=== PATIENT | female | born 1965 | race Caucasian/White ===

== ENCOUNTER 2016-11-25 15:30 | Emergency (ER) | payer MEDICARE, OTHER ==
[2016-11-25 15:42] VITALS: BP 156/76; PULSE 76; RESP 16; TEMP 96.9
--- NOTE | 2016-11-25 15:48 | ED ---
Upper Extremity HPI - General Chief Complaint: Extremity Injury, Upper Stated Complaint: L wrist injury Time Seen by Provider: 11/25/16 15:39 Source: patient Mode of arrival: ambulatory Limitations: no limitations - History of Present Illness Initial Comments: 51-year-old female patient presented to emergency department today with complaints of left wrist pain. Patient states that she was going outside today when she struck her wrist on the door handle accidentally. Patient states that she had some pain to the area however it has worsened throughout the day. Patient states she did attempt to take a shower wash her however she couldn't even grasp her washcloth due to the pain. Patient denies any previous wrist injury. Denies any numbness or tingling to her hand. She states she is able to move it however the pain worsens. Reports pain is worse over the ulnar aspect. Denies any other injuries. Patient denies any headache, neck pain, back pain, chest pain, shortness of breath, dizziness, weakness, abdominal pain , nausea, vomiting, or difficulties with bowel movements or urination. - Related Data Home Medications Medication Instructions Recorded Confirmed HYDROcodone/APAP 10-325MG [[place] 1 tab PO TID PRN 05/30/14 11/25/16 10-325] Esomeprazole Magnesium [NexIUM] 40 mg PO DAILY 09/08/14 11/25/16 Cyclobenzaprine [Flexeril] 10 mg PO HS 11/25/16 11/25/16 Naproxen 500 mg PO BID PRN 11/25/16 11/25/16 Allergies Allergy/AdvReac Type Severity Reaction Status Date / Time No Known Allergies Allergy Verified 11/25/16 15:41 Review of Systems ROS Statement: Those systems with pertinent positive or pertinent negative responses have been documented in the HPI. ROS Other: All systems not noted in ROS Statement are negative. Past Medical History Past Medical History: COPD, GERD/Reflux, Musculoskeletal Disorder, Osteoarthritis (OA) Additional Past Medical History / Comment(s): migraines, recurring ulcers, frequent abd. pain, DDD in neck, OSTEOPOROSIS, HAVING TROUBLE SWALLOWING, ON SOFT DIET, 5 LB WT LOSS IN 2 MONTHS History of Any Multi-Drug Resistant Organisms: None Reported Past Surgical History: Bladder Surgery, Cholecystectomy, Hernia Repair, Hysterectomy Additional Past Surgical History / Comment(s): JOSE ENRIQUE FUNDLAPLASTY, exploratory abd. surg. D&C Past Anesthesia/Blood Transfusion Reactions: No Reported Reaction Additional Past Anesthesia/Blood Transfusion Reaction / Comment(s): RECENT SURGERY HAD TO INTUBATED HAD PROBLEMS BREATHING Past Psychological History: No Psychological Hx Reported Smoking Status: Former smoker Past Alcohol Use History: Rare Past Drug Use History: None Reported - Past Family History Father Family Medical History: No Reported History General Exam Limitations: no limitations General appearance: alert, in no apparent distress Head exam: Present: atraumatic, normocephalic, normal inspection Respiratory exam: Present: normal lung sounds bilaterally. Absent: respiratory distress, wheezes, rales, rhonchi, stridor Cardiovascular Exam: Present: regular rate, normal rhythm, normal heart sounds. Absent: systolic murmur, diastolic murmur, rubs, gallop, clicks Extremities exam: Present: full ROM, normal capillary refill, other (Swelling over the ulnar aspect of the left wrist. Skin is pink, warm, and dry. Cap refill less than 3 seconds. Radial pulse intact, strong, and equal bilaterally. No anatomical snuffbox tenderness.). Absent: normal inspection, tenderness, pedal edema, joint swelling, calf tenderness Neurological exam: Present: alert, oriented X3, CN II-XII intact Psychiatric exam: Present: normal affect, normal mood Skin exam: Present: warm, dry, intact, normal color. Absent: rash Course Vital Signs 11/25/16 15:39 Temperature 96.9 F L Pulse Rate 76 Respiratory 16 Rate Blood Pressure 156/76 O2 Sat by Pulse 98 Oximetry Medical Decision Making - Medical Decision Making 51-year-old female patient presented to emergency department today for evaluation of left wrist pain. X-ray showed no acute fracture nor dislocation. Patient discharged home with instructions to wear brace (patient was wearing a brace upon arrival). Patient instructed to take her home pain medications for pain relief. Instructed to ice and elevate the extremity. Instructed her to follow up with her primary care physician or orthopedics in 7-10 days for repeat x-ray if symptoms persist. Patient instructed to return here immediately for any new, worsening, or concerning symptoms. Patient verbalizes understanding and agrees with this plan. - Radiology Data Radiology results: report reviewed, image reviewed 4 views of the left wrist were obtained and did show that the osseous structures are intact. Joint spaces are preserved and there is no acute fracture or dislocation. Impression by Dr. Velarde says no definite acute fracture or dislocation if symptoms persist follow-up study in 7-10 days be suggested. Disposition Clinical Impression: Left wrist sprain Disposition: HOME SELF-CARE Condition: Good Instructions: Wrist Injury (ED), Wrist Sprain (ED) Additional Instructions: Use Sunil wrap or brace for comfort. Apply ice 20 minutes at a time at least 4 times per day.Take ibuprofen or Tylenol for pain control. Follow-up for recheck in 7-10 days if symptoms persist. Return immediately for any new, worsening, or concerning symptoms. Referrals: Joshua Mendoza MD [Primary Care Provider] - 1-2 days Time of Disposition: 16:13
--- NOTE | 2016-11-25 16:06 | XR ---
EXAMINATION TYPE: XR wrist complete LT DATE OF EXAM: 11/25/2016 COMPARISON: NONE HISTORY: Generalized pain TECHNIQUE: Four views submitted. FINDINGS: The osseous structures are intact. The joint spaces are preserved and there is no acute fracture or dislocation. IMPRESSION: 1. No definite acute fracture or dislocation if symptoms persist, follow-up study in 7 to 10 days wo uld be suggested
== END 2016-11-25 16:19 | disposition home or self-care (01) ==
LOC: EC 15:30
DX: S63.502A Unspecified sprain of left wrist, initial encounter (principal); W22.8XXA Striking against or struck by other objects, initial encounter; Z79.899 Other long term (current) drug therapy; K21.9 Gastro-esophageal reflux disease without esophagitis
CPT/HCPCS: 99283

== ENCOUNTER 2017-01-08 16:30 | Emergency (ER) | payer MEDICARE, OTHER ==
[2017-01-08 16:58] VITALS: BP 135/82; PULSE 76; RESP 18; TEMP 97.3
[2017-01-08] MEDS ORDERED: predniSONE 50 MG TAB PO STA (17:09)
--- NOTE | 2017-01-08 17:10 | ED ---
Skin/Abscess/FB HPI - General Chief complaint: Skin/Abscess/Foreign Body Stated complaint: Bee Sting Time Seen by Provider: 01/08/17 17:05 Source: patient Mode of arrival: ambulatory Limitations: no limitations - History of Present Illness Initial comments: 51-year-old female patient percents to emergency department today for evaluation of a bee sting to her right hand. Patient states she was driving 2 days ago when a be was in her car and her on the middle finger on the right hand. She states that she has been taking Benadryl however doesn't seem to be helping her symptoms. She states that the finger and her hand are swollen, burning, and itching. She states that nothing seems to be helping her symptoms. She has no known ALLERGY to bees. Denies any shortness of breath, throat tightness, wheezing, or rash anywhere else. Patient denies any recent fever, chills, chest pain, abdominal pain, nausea, vomiting, diarrhea, constipation, back pain, numbness, tingling, dizziness, weakness, hematuria, dysuria, urinary urgency, urinary frequency, headache, visual changes, or any other complaints. - Related Data Home Medications Medication Instructions Recorded Confirmed HYDROcodone/APAP 10-325MG [[place] 1 tab PO TID PRN 05/30/14 11/25/16 10-325] Esomeprazole Magnesium [NexIUM] 40 mg PO DAILY 09/08/14 11/25/16 Cyclobenzaprine [Flexeril] 10 mg PO HS 11/25/16 11/25/16 Naproxen 500 mg PO BID PRN 11/25/16 11/25/16 Previous Rx's Medication Instructions Recorded predniSONE 50 mg PO DAILY #3 tab 01/08/17 Allergies Allergy/AdvReac Type Severity Reaction Status Date / Time No Known Allergies Allergy Verified 01/08/17 16:58 Review of Systems ROS Statement: Those systems with pertinent positive or pertinent negative responses have been documented in the HPI. ROS Other: All systems not noted in ROS Statement are negative. Past Medical History Past Medical History: COPD, GERD/Reflux, Musculoskeletal Disorder, Osteoarthritis (OA), Thyroid Disorder Additional Past Medical History / Comment(s): migraines, recurring ulcers, frequent abd. pain, DDD in neck, OSTEOPOROSIS, HAVING TROUBLE SWALLOWING, ON SOFT DIET, History of Any Multi-Drug Resistant Organisms: None Reported Past Surgical History: Bladder Surgery, Cholecystectomy, Hernia Repair, Hysterectomy Additional Past Surgical History / Comment(s): JOSE ENRIQUE FUNDLAPLASTY, exploratory abd. surg. D&C Past Anesthesia/Blood Transfusion Reactions: No Reported Reaction Additional Past Anesthesia/Blood Transfusion Reaction / Comment(s): RECENT SURGERY HAD TO INTUBATED HAD PROBLEMS BREATHING Past Psychological History: No Psychological Hx Reported Smoking Status: Former smoker Past Alcohol Use History: Rare Past Drug Use History: None Reported - Past Family History Father Family Medical History: No Reported History General Exam Limitations: no limitations General appearance: alert, in no apparent distress, other (Physical well- developed, well-nourished female patient in no acute distress. Vital signs upon presentation are temperature 97.3F, pulse 76, respirations 18, blood pressure 135/82, pulse ox 99% on room air.) Respiratory exam: Present: normal lung sounds bilaterally. Absent: respiratory distress, wheezes, rales, rhonchi, stridor Cardiovascular Exam: Present: regular rate, normal rhythm, normal heart sounds. Absent: systolic murmur, diastolic murmur, rubs, gallop, clicks Extremities exam: Present: full ROM, normal capillary refill, other (Patient has some erythema and swelling over the right middle finger, and the dorsal aspect of the right hand. Radial pulses 2+ and equal bilaterally. Skin is warm to touch. Cap refills less than 3 seconds. Skin otherwise pink, warm, and dry.). Absent: tenderness, pedal edema, joint swelling, calf tenderness Neurological exam: Present: alert, oriented X3, CN II-XII intact Psychiatric exam: Present: normal affect, normal mood Skin exam: Present: warm, dry, intact, normal color. Absent: rash Course Vital Signs 01/08/17 16:54 Temperature 97.3 F L Pulse Rate 76 Respiratory 18 Rate Blood Pressure 135/82 O2 Sat by Pulse 99 Oximetry Medical Decision Making - Medical Decision Making 51-year-old female patient presents for increased hand swelling and burning after being stung by a bee 2 days ago. States that she has been taking Benadryl without relief. Physical exam does show some minor swelling and erythema over the dorsum of the right hand and the right middle finger. We will give her a by mouth dose of prednisone here in the department, and do a three-day course of prednisone for her at home. If she is instructed to apply cool compresses to the hand. She is instructed to continue taking Benadryl every 6 hours as needed. I instructed her to follow-up with her primary care physician for recheck in 1-2 days. Instructed her to return here immediately for any new, worsening, or concerning symptoms. She verbalizes understanding and agrees with this plan. Disposition Clinical Impression: Insect sting Disposition: HOME SELF-CARE Condition: Good Instructions: Insect Bite or Sting (ED) Additional Instructions: Cool compresses over the hand at least 10-15 minutes at a time 4 times daily. Take medication as directed. Use Benadryl every 6 hours as needed for symptom control. Follow-up through primary care physician for recheck in 1-2 days. Prescriptions: predniSONE 50 mg PO DAILY #3 tab Referrals: Joshua Mendoza MD [Primary Care Provider] - 1-2 days Time of Disposition: 17:10
== END 2017-01-08 17:18 | disposition home or self-care (01) ==
LOC: EC 16:30
DX: T63.441A Toxic effect of venom of bees, accidental (unintentional), initial encounter (principal); K21.9 Gastro-esophageal reflux disease without esophagitis; M62.9 Disorder of muscle, unspecified; Z87.891 Personal history of nicotine dependence; Z79.899 Other long term (current) drug therapy
CPT/HCPCS: 99282 ×2; J7512

== ENCOUNTER → 2017-10-26 | Outpatient (CLI) | payer MEDICARE, OTHER ==
--- NOTE | 2017-10-26 09:23 | FL ---
EXAMINATION TYPE: FL barium swallow DATE OF EXAM: 10/26/2017 CLINICAL HISTORY: Midsternal chest pain when eating for 2 years. History of Sandro fundoplication anju jenelle 2 years ago. History of gastric ulcers on endoscopy. Continued antireflux and acid medications w ithout improvement in symptoms per patient. TECHNIQUE: A single contrast esophagram is performed utilizing barium. A total of 33 seconds of flu oroscopic time was utilized during procedure. 30 spot images were saved during procedure. COMPARISON: None FINDINGS: The esophagus shows satisfactory motility and emptying into the stomach. No intraluminal m ass or stricture noted. A small sliding-type hiatal hernia is noted during prone drinking. No signif icant gastroesophageal reflux was seen during real time performance of this study. IMPRESSION: Recurrent small sliding-type hiatal hernia otherwise unremarkable study.
== END | disposition home or self-care (01) ==
LOC: RADFLWHC 08:01
PROVIDERS: ATTEND Surgery
DX: K44.9 Diaphragmatic hernia without obstruction or gangrene (principal)
CPT/HCPCS: 74220

== ENCOUNTER 2017-10-28 13:40 | Day surgery (SDC) | payer MEDICARE, OTHER ==
[2017-10-23 08:54] VITALS: BMI 23.1
[~2017-10-28 13:40] MED LIST: LACTATED RINGERS 1,000 ML IV SCH; LIDOCAINE 1% 20 ML VIAL (10MG/ML) FOR IV START INTRADERMA PRN
[2017-10-28 14:18] VITALS: TEMP 98.2
--- NOTE | 2017-10-28 14:50 | P.GSHP ---
History of Present Illness H&P Date: 10/28/17 Chief Complaint: GERD, dysphagia This is a 52-year-old female with a previous history of a hiatal hernia repair. Patient's had developed some complaints of GERD and dysphagia. She does today for EGD. Past Medical History Past Medical History: COPD, GERD/Reflux, Musculoskeletal Disorder, Osteoarthritis (OA), Thyroid Disorder Additional Past Medical History / Comment(s): states hx of fast heart rate with injections (no problems in last 21 years.)migraines, recurring ulcers, frequent abd. pain, DDD in neck & back, osteoporosis, feels like food gets stuck when swallowing, testing for sleep apnea scheduled. History of Any Multi-Drug Resistant Organisms: None Reported Past Surgical History: Bladder Surgery, Cholecystectomy, Hernia Repair, Hysterectomy, Tonsillectomy Additional Past Surgical History / Comment(s): JOSE ENRIQUE FUNDLAPLASTY, exploratory abd. surg. D&C, tumor on hand removed. Past Anesthesia/Blood Transfusion Reactions: No Reported Reaction, Motion Sickness Additional Past Anesthesia/Blood Transfusion Reaction / Comment(s): SURGERY x1 HAD TO BE INTUBATED -HAD PROBLEMS BREATHING Past Psychological History: No Psychological Hx Reported Smoking Status: Former smoker Past Alcohol Use History: Rare Additional Past Alcohol Use History / Comment(s): STARTED SMOKING AT AGE 11, QUIT 2014, SMOKED 1 1/2 PPD OR MORE. Past Drug Use History: None Reported - Past Family History Father Family Medical History: No Reported History Medications and Allergies Home Medications Medication Instructions Recorded Confirmed Type Esomeprazole Magnesium [NexIUM] 40 mg PO DAILY 09/08/14 10/28/17 History Gabapentin [Neurontin] 800 mg PO TID 01/08/17 10/28/17 History Hydrocodone/Acetaminophen [[place] 1 tab PO QID PRN 01/08/17 10/28/17 History 7.5-325] Meloxicam [Mobic] 15 mg PO DAILY 01/08/17 10/28/17 History Albuterol Inhaler [Ventolin Hfa 1 - 2 puff INHALATION RT-Q6H PRN 10/23/17 History Inhaler] Baclofen 10 mg PO DAILY PRN 10/23/17 10/28/17 History Budesonide-Formot 160-4.5 Mcg 2 puff INHALATION BID 10/23/17 10/28/17 History [Symbicort 160-4.5 Mcg Inhaler] Levothyroxine Sodium 88 mcg PO DAILY 10/23/17 10/28/17 History Meclizine [Antivert] 25 mg PO BID 10/23/17 10/28/17 History Ranitidine HCl [Zantac] 150 mg PO HS 10/23/17 10/28/17 History Allergies Allergy/AdvReac Type Severity Reaction Status Date / Time No Known Allergies Allergy Verified 10/28/17 14:05 Surgical - Exam Vital Signs Temp Pulse Resp BP Pulse Ox 98.2 F 79 16 116/77 97 10/28/17 14:16 10/28/17 14:16 10/28/17 14:16 10/28/17 14:16 10/28/17 14:16 - General well developed, no distress - Eyes PERRL - ENT normal pinna - Neck no masses - Respiratory normal expansion - Cardiovascular Rhythm: regular - Abdomen Abdomen: soft, non tender Assessment and Plan Assessment: GERD, dysphagia. We'll perform EGD.
[2017-10-28] MEDS ORDERED: PROPOFOL 10 MG/ML 20 ML VIAL IV ONE (14:53)
--- NOTE | 2017-10-28 15:03 | P.OP ---
Date of Procedure: 10/28/17 Preoperative Diagnosis: GERD Dysphagia Postoperative Diagnosis: Mild antral gastritis No evidence of GE junction stricture Procedure(s) Performed: EGD with balloon dilatation of GE junction Anesthesia: MAC Surgeon: Dillon Arthur Pathology: other (Antral, esophagus) Condition: stable Disposition: PACU Description of Procedure: The patient's placed on the endoscopy table in the lateral position. She received IV sedation. The scope was then placed the patient's oropharynx passed in the esophagus and stomach. Scope was then placed through the pylorus. The first and second portion duodenum appeared normal. The scope was then brought back the antrum and this appeared mildly inflamed. A biopsies performed. Scope was retroflexed. There is no evidence of a hiatal hernia. There is no evidence of a GE junction stricture. Due to the patient's symptoms and dysphagia a 20 mm balloon was placed across the GE junction this was passed quite easily. There is no evidence of obstruction or stricture. Scope was then brought back into the distal esophagus and this appeared normal. Scope was withdrawn for patient.
[2017-10-28 15:22] VITALS: BP 115/74; PULSE 72; RESP 18
== END 2017-10-28 15:39 | disposition home or self-care (01) ==
LOC: ORWHC2ENDO 13:40
PROVIDERS: ATTEND Surgery
DX: K29.50 Unspecified chronic gastritis without bleeding (principal); K21.9 Gastro-esophageal reflux disease without esophagitis; J44.9 Chronic obstructive pulmonary disease, unspecified; M19.90 Unspecified osteoarthritis, unspecified site; E07.9 Disorder of thyroid, unspecified; G43.909 Migraine, unspecified, not intractable, without status migrainosus; M81.0 Age-related osteoporosis without current pathological fracture; Z79.1 Long term (current) use of non-steroidal anti-inflammatories (NSAID); Z79.890 Hormone replacement therapy; Z79.51 Long term (current) use of inhaled steroids; Z79.899 Other long term (current) drug therapy; Z90.49 Acquired absence of other specified parts of digestive tract; Z90.710 Acquired absence of both cervix and uterus; Z87.891 Personal history of nicotine dependence
CPT/HCPCS: 88305; 43239; 43249; J2704; C1726

== ENCOUNTER → 2017-11-18 | Outpatient (CLI) | payer MEDICARE, OTHER ==
--- NOTE | 2017-11-18 14:06 | CT ---
EXAMINATION TYPE: CT abdomen pelvis w con DATE OF EXAM: 11/18/2017 COMPARISON: May 09, 2010 HISTORY: ab pain/epigastric pain CT DLP: 638.9 mGycm CONTRAST: CT scan of the abdomen and pelvis is performed with Oral Contrast and with IV Contrast, patient injec lisa with 100 mL of Isovue 300. FINDINGS: LUNG BASES-: No visible nodule. No infiltrate. LIVER/GB: Cholecystectomy clips are in place. Mild hepatic fatty infiltration noted. No space occup joann hepatic lesion. Biliary tree is of normal caliber. PANCREAS: No inflammation. No distinct mass. SPLEEN: No splenic enlargement. No lesion seen. ADRENALS: No nodule. No thickening. KIDNEYS/BLADDER: No hydronephrosis. No nephrolithiasis. No distinct renal mass. Urinary bladder g rossly unremarkable. BOWEL: Normal appendix. Wall thickening descending colon and sigmoid colon may reflect poor distentio n. Underlying colitis is difficult to exclude. No evidence for diverticulitis. No evidence of bowel o bstruction. GENITAL ORGANS: Right ovarian cystic lesion measuring 2.6 cm is nonspecific. Consider ultrasound cor relation. There is been prior hysterectomy. No left adnexal mass seen. LYMPH NODES: No greater than 1cm abdominal or pelvic lymph nodes are appreciated. AORTA: No significant abnormality. OSSEOUS STRUCTURES: No significant abnormality is seen. OTHER: No significant additional abnormality is seen. IMPRESSION: 1. Correlate for nonspecific colitis. 2. Right ovarian cystic lesion. Consider ultrasound correlation.
== END | disposition home or self-care (01) ==
LOC: RADCTMAIN 11:16
PROVIDERS: ATTEND Surgery
DX: N83.201 Unspecified ovarian cyst, right side (principal)
CPT/HCPCS: 74177; Q9967

== ENCOUNTER → 2018-04-06 | Outpatient (CLI) | payer MEDICARE, OTHER ==
--- NOTE | 2018-04-06 13:06 | PN ---
PROGRESS NOTE Chelsea is 52 and she is coming to see me in follow up [facility] regarding her chronic sleep problems. The patient was initially referred to me for symptoms of chronic insomnia. She was told to have comorbid insomnia as the patient reported chronic anxiety and that she had chronic body aches and pains. Other comorbidities included COPD, hypothyroidism, degenerative arthritis and chronic fatigue. [place] score was 24. She was taking a combination of medications including Rodman. I performed a sleep study on this patient and this was a full PSG during which the patient was found to have a combination of obstructive and central sleep apnea. However the central apnea was more predominant with an AHI of 21, and the obstructive events were limited. The patient did not reveal any significant insomnia. She was able to generate more than 6 hours of sleep with an efficiency of 98%. Her architecture; however, was abnormal with over representation of stage 2 sleep. Based on that, the patient was given an ASV unit. She underwent an ASV titration that was very much successful and she was supposed to come and see me back in followup regarding her ASV treatment to discuss her clinical response and compliance. On today's evaluation, the patient says that she used her ASV for around 3 weeks and subsequently she quit. She has tried to go back in using it; however, course was complicated by development of recurrent sinus infections and she is to the point where she is unable to tolerate the treatment. She was given a [employer]ear nose mask and checking her compliance data over the past 4 months, the patient has used her ASV machine days. She has been averaging around 2.1 hours per night and her AHI while on treatment is at 10.9. Note that her baseline AHI was 21. Despite some improvement in her AHI, treatment does not seem to be successful and furthermore the patient has been able to tolerate the treatment. Upon further inquiry, she does not have any nasal congestion or drainage or chronic sinus disease at baseline. Her symptoms are essentially exacerbated upon using the treatment. She is also unwilling to use a full face mask. No change in her narcotic dose and as mentioned earlier, she does have any underlying cardiomyopathy. Based on polysomnogram done it does not show any significant nocturnal oxygen desaturation. REVIEW OF SYSTEMS: Twelve-point review of system was done. Positive findings are mentioned above in history of present illness. She has chronic fatigue, chronic tiredness, chronic anxiety, chronic body pain. Chronic exertional dyspnea and degenerative arthritis. A 12-point review of system was essentially negative. Other things mentioned above in history of present illness. This was done initially at the time of the initial consultation. PHYSICAL EXAMINATION: Her current vitals, blood pressure is 115/69, pulse 78, respirations 18, [place] score is 22, temperature 98.2, weight is 141, and saturation 94% on room air. GENERAL APPEARANCE: Calm, comfortable. Head is atraumatic, normocephalic. NECK: Supple. No JVD. No goiter or neck masses. LUNGS: Clear to auscultation. HEART: Sounds regular rate and rhythm. Normal S1, S2. No S3, S4. No murmurs. ABDOMEN: Soft, nontender. EXTREMITIES: No edema. No cyanosis or clubbing. NEUROLOGIC: Alert and oriented x3. No focal neurological deficit. Psychiatrically, the patient has no anxiety or she has no active anxiety or depression at the time of my evaluation. SKIN: Negative for any wounds or ulceration. IMPRESSION: 1. Sleep apnea. Predominantly central with an apnea-hypopnea index of 20, mild obstructive events were also noted on her original screening polysomnogram. 2. Chronic hypersomnia [place] score is 22. 3. No indication of any chronic insomnia based on the sleep study, the patient was able to generate more than 6 hours of sleep without any major difficulty with sleep efficiency of 98%. 4. Chronic fatigue. 5. Chronic pain. 6. Hypothyroidism. 7. Degenerative arthritis. 8. Chronic obstructive pulmonary disease. 9. Failure to try to tolerate ASV treatment because of recurrent sinus infections. PLAN: I had a lengthy discussion with the patient. I am not clear as far as what is causing this patient's central events. Obviously, the patient does not have any signs or symptoms of congestion heart failure. I emphasized the need for a baseline echocardiogram again on this patient to assess her LV function and to make sure there is no underlying valvular heart disease or any ongoing cardiac arrhythmias. No history of CVA. She takes no quite a low dose and she denies taking any other excessive narcotic medications. No history of any head trauma. No family history of any sleep apnea disorder. She has failed treatment. She wants to quit the treatment for now and she has been able to establish she has been able to dominance demonstrate adequate compliancy. Unfortunately nothing much can be offered other than an ASV unit on this patient for now. I am going to refer back to primary care physician. I asked the patient to avoid taking any narcotics or cut down the dose to minimal based on history of central sleep apnea. I will do a re-evaluation in a year's time with a home sleep study to assess the presence and re-evaluate the severity of her sleep apnea in general which is predominantly central in nature. . MMODL / IJN: [id number] /
== END ==
LOC: SLEEP 11:04
PROVIDERS: ATTEND Internal Medicine Critical Care Medicine
DX: G47.30 Sleep apnea, unspecified (principal); G89.29 Other chronic pain; E03.9 Hypothyroidism, unspecified; J44.9 Chronic obstructive pulmonary disease, unspecified; M19.90 Unspecified osteoarthritis, unspecified site; R53.82 Chronic fatigue, unspecified

== ENCOUNTER → 2018-12-28 | Outpatient (CLI) | payer MEDICARE, OTHER ==
--- NOTE | 2018-12-28 17:31 | PN ---
PROGRESS NOTE SLEEP CENTER PROGRESS NOTE: Chelsea has been diagnosed having central sleep apnea. This was a narcotic-induced central sleep apnea, as the patient does not have any other cardiovascular disease. The patient was taking a combination of medication, including [place]. Her AHI was 21 regarding her central apnea. I made recommendations and dropped down her narcotic dose; however, based on her chronic pain which is degenerative disc disease and fibromyalgia, she was unable to do so and currently she is taking a higher dose of [place]. At the same time I gave the patient an ASV titration which was extremely successful. She took the machine. She used it for quite some time and she ended up returning the machine, as the patient was having sinus infections. As such, she is not using any form of respiratory assistive devices overnight. I am sure she is having still central apneas while taking her narcotic medications. She states that the pain is very important for her and she is unable to cut down on any of her narcotic medications. She is tired, sleepy and fatigued during the day. She has history of COPD and she quit smoking. Other comorbidities include hypothyroidism, chronic neck pain and back pain and degenerative disc disease. Her weight has been stable. There have been no other new comorbidities since her last evaluation approximately 9 months ago. PHYSICAL EXAMINATION: VITAL SIGNS: BP is 107/62, pulse 68, respirations 16, temperature 98.4, saturation 98% on room air. Weight is 140, height 5 feet 3 inches, BMI 24.4. GENERAL APPEARANCE: Calm, comfortable. HEAD: Atraumatic, normocephalic. NECK: Supple. No JVD. No goiter or neck masses. LUNGS: Diminished; otherwise clear. HEART: Heart sounds are regular rate and rhythm. Normal S1, S2. No S3, S4. No murmurs. ABDOMEN: Soft, nontender. No organomegaly. EXTREMITIES: No edema. No cyanosis or clubbing. NEUROLOGIC: Alert and oriented x3. No focal neurological deficits. PSYCHIATRY: Negative for anxiety or depression. IMPRESSION: 1. Central sleep apnea. AHI is 21. Unable to tolerate ASV despite a successful titration that the patient had in the lab. This is a narcotic-induced central sleep apnea without any underlying cardiovascular diseases. 2. Chronic pain. 3. Degenerative disc disease. 4. Chronic obstructive pulmonary disease. 5. Hypothyroidism. PLAN: Nothing much can be offered to this patient. If her condition gets worse, I would strongly encourage the patient to contact me back for reconsideration of her ASV treatment. Otherwise she needs to cut down on her narcotic doses, which will be one of the most effective ways of improving her sleep breathing disorder. This was explained to her at length. LISA / MARINA: [phone] /
== END ==
LOC: SLEEP 14:32
PROVIDERS: ATTEND Internal Medicine Critical Care Medicine
DX: G47.31 Primary central sleep apnea (principal); G89.29 Other chronic pain; M51.36 Other intervertebral disc degeneration, lumbar region; J44.9 Chronic obstructive pulmonary disease, unspecified; E03.9 Hypothyroidism, unspecified; Z87.891 Personal history of nicotine dependence

== ENCOUNTER 2019-08-29 17:01 | Emergency (ER) | payer MEDICARE, OTHER ==
[2019-08-29 17:17] VITALS: RESP 18; TEMP 98.2
[2019-08-29] MEDS ORDERED: KETOROLAC 30 MG/ML 1 ML VIAL IM STA (17:42)
--- NOTE | 2019-08-29 18:14 | ED ---
General Adult HPI - General Chief complaint: Extremity Injury, Lower Stated complaint: RT ankle injury Source: patient, RN notes reviewed Mode of arrival: wheelchair Limitations: no limitations - History of Present Illness Initial comments: 54-year-old female presents for right ankle pain. Patient states she was at her daughter's house walking on the grass when she inverted her right ankle. Patient did hear a snap or pop. Patient states she cannot bear weight on it. Patient did not hit her head. She did not sustain any other injuries. Not up-to-date on tetanus and does have an abrasion to the left anterior knee. She does not have any pain with bending or walking on the left knee.Patient has no other complaints at this time including shortness of breath, chest pain, abdominal pain, nausea or vomiting, headache, or visual changes. - Related Data Home Medications Medication Instructions Recorded Confirmed Esomeprazole Magnesium [NexIUM] 40 mg PO DAILY 09/08/14 10/28/17 Gabapentin [Neurontin] 800 mg PO TID 01/08/17 10/28/17 Hydrocodone/Acetaminophen [[place] 1 tab PO QID PRN 01/08/17 10/28/17 7.5-325] Meloxicam [Mobic] 15 mg PO DAILY 01/08/17 10/28/17 Albuterol Inhaler (Mhu) [Ventolin 1 - 2 puff INHALATION RT-Q6H PRN 10/23/17 10/28/17 Hfa Inhaler] Baclofen 10 mg PO DAILY PRN 10/23/17 10/28/17 Budesonide-Formot 160-4.5 Mcg 2 puff INHALATION BID 10/23/17 10/28/17 [Symbicort 160-4.5 Mcg Inhaler] Levothyroxine Sodium 88 mcg PO DAILY 10/23/17 10/28/17 Meclizine [Antivert] 25 mg PO BID 10/23/17 10/28/17 Ranitidine HCl [Zantac] 150 mg PO HS 10/23/17 10/28/17 Allergies Allergy/AdvReac Type Severity Reaction Status Date / Time No Known Allergies Allergy Verified 08/29/19 17:17 Review of Systems ROS Statement: Those systems with pertinent positive or pertinent negative responses have been documented in the HPI. ROS Other: All systems not noted in ROS Statement are negative. Past Medical History Past Medical History: COPD, GERD/Reflux, Musculoskeletal Disorder, Osteoarthritis (OA), Thyroid Disorder Additional Past Medical History / Comment(s): states hx of fast heart rate with injections (no problems in last 21 years.)migraines, recurring ulcers, frequent abd. pain, DDD in neck & back, osteoporosis, feels like food gets stuck when swallowing, testing for sleep apnea scheduled. History of Any Multi-Drug Resistant Organisms: None Reported Past Surgical History: Bladder Surgery, Cholecystectomy, Hernia Repair, Hysterectomy, Tonsillectomy Additional Past Surgical History / Comment(s): JOSE ENRIQUE FUNDLAPLASTY, exploratory abd. surg. D&C, tumor on hand removed. Past Anesthesia/Blood Transfusion Reactions: No Reported Reaction, Motion Sickness Additional Past Anesthesia/Blood Transfusion Reaction / Comment(s): SURGERY x1 HAD TO BE INTUBATED -HAD PROBLEMS BREATHING Past Psychological History: No Psychological Hx Reported Smoking Status: Former smoker Past Alcohol Use History: Rare Past Drug Use History: None Reported - Past Family History Father Family Medical History: No Reported History General Exam Limitations: no limitations General appearance: alert, in no apparent distress Head exam: Present: atraumatic, normocephalic, normal inspection Eye exam: Present: normal appearance, PERRL, EOMI. Absent: scleral icterus, conjunctival injection, periorbital swelling ENT exam: Present: normal exam, mucous membranes moist Neck exam: Present: normal inspection. Absent: tenderness, meningismus, lymphadenopathy Respiratory exam: Present: normal lung sounds bilaterally. Absent: respiratory distress, wheezes, rales, rhonchi, stridor Cardiovascular Exam: Present: regular rate, normal rhythm, normal heart sounds. Absent: systolic murmur, diastolic murmur, rubs, gallop, clicks Extremities exam: Present: tenderness (Tenderness to the lateral malleolus), normal capillary refill (Capillary refill less than 2 seconds in the right lower extremity, DP pulse 2+.), joint swelling (Patient has moderate edema noted to the lateral aspect of the right ankle including the lateral malleolus.). Absent: full ROM (Pain with plantar and dorsi flexion of the right ankle.), calf tenderness Neurological exam: Present: alert, oriented X3, CN II-XII intact Course Vital Signs 08/29/19 17:14 Temperature 98.2 F Pulse Rate 96 Respiratory 18 Rate Blood Pressure 145/95 O2 Sat by Pulse 100 Oximetry Procedures - Orthopedic Splinting/Casting Injury #1 Side: right Lower Extremity Injury Location: short leg Lower Extremity Immobilizer: posterior splint, stirrup splint Other Orthopedic Equipment: crutches Medical Decision Making - Medical Decision Making HPI and physical exam as documented. Moderate to significant soft tissue edema noted of the right lateral ankle. Neurovascular status intact. X-ray of the right foot shows a transverse fracture of the distal fibula with marked soft tissue swelling. Additional anterior soft tissue swelling and underlying tibiotalar joint effusion. 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 Patient was splinted in a posterior and stirrup splint. She has [place] at home for pain that she will take. She was told to remain nonweightbearing with crutches and was given a prescription. Discussed rest ice and elevate. She will call orthopedics tomorrow. She will return here for any worsening symptoms. Disposition Clinical Impression: Closed fibular fracture Disposition: HOME SELF-CARE Condition: Good Instructions (If sedation given, give patient instructions): Ankle Fracture (ED) Additional Instructions: Please remain nonweightbearing on the right ankle. Use crutches. Keep splint dry. Take [place] for pain. Rest ice and elevate the right ankle. Follow-up with orthopedics by calling for an appointment tomorrow. If you have any worsening symptoms return to the emergency department. Say ankit Wright for us! :) Is patient prescribed a controlled substance at d/c from ED?: No Referrals: Joshua Mendoza MD [Primary Care Provider] - 1-2 days Misael Cash DO [Medical Doctor] - 1-2 days Time of Disposition: 19:06
[2019-08-29] MEDS ORDERED: DIPH,PERTUS(ACELL)TETVAC-LF 0.5 ML VIAL IM ONE (18:22)
--- NOTE | 2019-08-29 18:30 | XR ---
EXAMINATION TYPE: XR ankle complete 3 views RT, XR foot complete 3 views RT DATE OF EXAM: 08/29/2019 COMPARISON: NONE HISTORY: 54-year-old female with pain after rolling injury FINDINGS: Ankle: Transverse fracture distal fibula with marked overlying soft tissue swelling. Additional anterior sof t tissue swelling and underlying tibiotalar joint effusion. Smooth delineation to the Achilles tendon . Subtalar joint is aligned. Foot: Type II accessory navicular with significant symptomatic in some patients. No acute fracture, subluxa tion, dislocation seen. IMPRESSION: 1. Ankle: Transverse distal fibular fracture with associated marked soft tissue swelling. 2. Foot: Type II accessory navicular which can become symptomatic in some patients. No acute osseous abnormality seen.
[2019-08-29 19:31] VITALS: BP 144/91; PULSE 79
== END 2019-08-29 19:22 | disposition home or self-care (01) ==
LOC: EC 17:01
DX: S82.421A Displaced transverse fracture of shaft of right fibula, initial encounter for closed fracture (principal); S80.212A Abrasion, left knee, initial encounter; J44.9 Chronic obstructive pulmonary disease, unspecified; K21.9 Gastro-esophageal reflux disease without esophagitis; M19.90 Unspecified osteoarthritis, unspecified site; E07.9 Disorder of thyroid, unspecified; Z79.890 Hormone replacement therapy; Z79.899 Other long term (current) drug therapy; Z87.891 Personal history of nicotine dependence; Z90.89 Acquired absence of other organs; Z90.49 Acquired absence of other specified parts of digestive tract; Z90.710 Acquired absence of both cervix and uterus; Z98.890 Other specified postprocedural states; X50.0XXA Overexertion from strenuous movement or load, initial encounter; Y93.01 Activity, walking, marching and hiking; Y92.009 Unspecified place in unspecified non-institutional (private) residence as the place of occurrence of the external cause; Z23 Encounter for immunization
CPT/HCPCS: 73610; 73630; 90715; 99283; 29515; 96372; 90471; J1885

== ENCOUNTER → 2019-09-06 | Outpatient (CLI) | payer MEDICARE, OTHER ==
--- NOTE | 2019-09-06 13:07 | US ---
EXAMINATION TYPE: US venous doppler duplex LE RT DATE OF EXAM: 09/06/2019 12:33 PM COMPARISON: NONE CLINICAL HISTORY: RLE Thrombophlebitis I80.9. Right leg pain SIDE PERFORMED: Right TECHNIQUE: The lower extremity deep venous system is examined utilizing real time linear array sonog edita with graded compression, doppler sonography and color-flow sonography. VESSELS IMAGED: External Iliac Vein (EIV) Common Femoral Vein Deep Femoral Vein Greater Saphenous Vein * Femoral Vein Popliteal Vein Small Saphenous Vein * Proximal Calf Veins (* superficial vessels) Grayscale, color doppler, spectral doppler imaging performed of the deep veins of the right lower ext remity. There is normal flow, compressibility, vascular waveforms. Right Leg: Appears negative for DVT IMPRESSION: No sonographic evidence of deep venous thrombosis within the visualized portions of the right lower extremity
== END | disposition home or self-care (01) ==
LOC: RADUSWWP 12:00
PROVIDERS: ATTEND Orthopaedic Surgery
DX: I80.9 Phlebitis and thrombophlebitis of unspecified site (principal); M79.604 Pain in right leg

== ENCOUNTER 2020-06-22 11:46 | Observation (INO) | payer MEDICARE, OTHER ==
--- NOTE | 2020-06-22 12:23 | ED ---
General Adult HPI - General Chief complaint: Chest Pain Stated complaint: Chest Pain Time Seen by Provider: 06/22/20 12:04 Source: patient, RN notes reviewed, old records reviewed Mode of arrival: wheelchair Limitations: no limitations - History of Present Illness Initial comments: 55-year-old female presented for evaluation of chest pain. Pain has been present for the past 3 months. She has followed with cardiology who had recommended a stress test however the patient was unable to tolerate this and is currently scheduled for a stress echo. She has no known history of coronary artery disease. She does report some associated dyspnea. She denies lower extremity swelling. No history of DVT or PE. Pain is a central chest heaviness which is present both with activity and at rest. No associated nausea vomiting or diaphoresis. No abdominal pain. - Related Data Allergies Allergy/AdvReac Type Severity Reaction Status Date / Time No Known Allergies Allergy Verified 06/22/20 11:53 Review of Systems ROS Statement: Those systems with pertinent positive or pertinent negative responses have been documented in the HPI. ROS Other: All systems not noted in ROS Statement are negative. Past Medical History Past Medical History: Thyroid Disorder Additional Past Medical History / Comment(s): emphysema History of Any Multi-Drug Resistant Organisms: None Reported Past Surgical History: Cholecystectomy, Hysterectomy Past Psychological History: No Psychological Hx Reported Smoking Status: Former smoker Past Alcohol Use History: None Reported Past Drug Use History: None Reported General Exam Limitations: no limitations General appearance: alert, in no apparent distress Head exam: Present: atraumatic, normocephalic Eye exam: Present: normal appearance, PERRL ENT exam: Present: normal exam Neck exam: Present: normal inspection. Absent: tenderness, meningismus Respiratory exam: Present: normal lung sounds bilaterally. Absent: respiratory distress, wheezes Cardiovascular Exam: Present: regular rate, normal rhythm GI/Abdominal exam: Present: soft. Absent: distended, tenderness, guarding, rebound Extremities exam: Present: normal inspection, normal capillary refill. Absent: pedal edema, calf tenderness Neurological exam: Present: alert, oriented X3, CN II-XII intact, motor sensory deficit Psychiatric exam: Present: normal affect, normal mood Skin exam: Present: warm, dry, intact. Absent: cyanosis, diaphoretic Course Vital Signs 06/22/20 11:49 Temperature 97.3 F L Pulse Rate 79 Respiratory 20 Rate Blood Pressure 144/95 O2 Sat by Pulse 99 Oximetry EKG Findings - EKG Comments: EKG Findings:: EKG: Normal sinus rhythm, rate of 61, VT interval 154, QRS duration 90, QTC 398, no ST segment elevation T waves are upright. Medical Decision Making - Medical Decision Making 55 female with intermittent chest pain over the last several months, worse yesterday evening and throughout the night. No associated vomiting, no diaphoresis. Pain is improved time my evaluation. EKG sinus rhythm without ST segment elevation. Chest x-rays negative for acute cardio pulmonary disease. She has normal CBC, normal CMP, negative d-dimer, negative initial troponin. She will be kept in observation for serial cardiac enzymes, telemetry, cardiology consultation. Case discussed with Dr. Mendoza who will admit. - Lab Data Result diagrams: 06/22/20 12:20 06/22/20 12:20 Lab Results 06/22/20 06/22/20 06/22/20 Range/Units 12:20 12:20 12:20 WBC 7.7 (3.8-10.6) k/uL RBC 3.86 (3.80-5.40) m/uL Hgb 12.3 (11.4-16.0) gm/dL Hct 36.5 (34.0-46.0) % MCV 94.6 (80.0-100.0) fL MCH 31.9 (25.0-35.0) pg MCHC 33.7 (31.0-37.0) g/dL RDW 12.6 (11.5-15.5) % Plt Count 338 (150-450) k/uL MPV 6.6 Neutrophils % 62 % Lymphocytes % 24 % Monocytes % 5 % Eosinophils % 5 % Basophils % 1 % Neutrophils # 4.8 (1.3-7.7) k/uL Lymphocytes # 1.8 (1.0-4.8) k/uL Monocytes # 0.4 (0-1.0) k/uL Eosinophils # 0.4 (0-0.7) k/uL Basophils # 0.1 (0-0.2) k/uL PT 9.6 (9.0-12.0) sec INR 0.9 (<1.2) APTT 23.6 (22.0-30.0) sec D-Dimer 0.32 (<0.60) mg/L FEU Sodium 138 (137-145) mmol/L Potassium 4.5 (3.5-5.1) mmol/L Chloride 104 (98-107) mmol/L Carbon Dioxide 27 (22-30) mmol/L Anion Gap 7 mmol/L BUN 20 H (7-17) mg/dL Creatinine 0.54 (0.52-1.04) mg/dL Est GFR (CKD-EPI)AfAm >90 (>60 ml/min/1.73 sqM) Est GFR (CKD-EPI)NonAf >90 (>60 ml/min/1.73 sqM) Glucose 94 (74-99) mg/dL Calcium 10.2 (8.4-10.2) mg/dL Magnesium 1.9 (1.6-2.3) mg/dL Total Bilirubin 0.2 (0.2-1.3) mg/dL AST 25 (14-36) U/L ALT 15 (4-34) U/L Alkaline Phosphatase 159 H (38-126) U/L Troponin I (0.000-0.034) ng/mL NT-Pro-B Natriuret Pep pg/mL Total Protein 6.6 (6.3-8.2) g/dL Albumin 3.9 (3.5-5.0) g/dL Lipase 78 (23-300) U/L 06/22/20 06/22/20 Range/Units 12:20 12:20 WBC (3.8-10.6) k/uL RBC (3.80-5.40) m/uL Hgb (11.4-16.0) gm/dL Hct (34.0-46.0) % MCV (80.0-100.0) fL MCH (25.0-35.0) pg MCHC (31.0-37.0) g/dL RDW (11.5-15.5) % Plt Count (150-450) k/uL MPV Neutrophils % % Lymphocytes % % Monocytes % % Eosinophils % % Basophils % % Neutrophils # (1.3-7.7) k/uL Lymphocytes # (1.0-4.8) k/uL Monocytes # (0-1.0) k/uL Eosinophils # (0-0.7) k/uL Basophils # (0-0.2) k/uL PT (9.0-12.0) sec INR (<1.2) APTT (22.0-30.0) sec D-Dimer (<0.60) mg/L FEU Sodium (137-145) mmol/L Potassium (3.5-5.1) mmol/L Chloride (98-107) mmol/L Carbon Dioxide (22-30) mmol/L Anion Gap mmol/L BUN (7-17) mg/dL Creatinine (0.52-1.04) mg/dL Est GFR (CKD-EPI)AfAm (>60 ml/min/1.73 sqM) Est GFR (CKD-EPI)NonAf (>60 ml/min/1.73 sqM) Glucose (74-99) mg/dL Calcium (8.4-10.2) mg/dL Magnesium (1.6-2.3) mg/dL Total Bilirubin (0.2-1.3) mg/dL AST (14-36) U/L ALT (4-34) U/L Alkaline Phosphatase (38-126) U/L Troponin I <0.012 (0.000-0.034) ng/mL NT-Pro-B Natriuret Pep 236 pg/mL Total Protein (6.3-8.2) g/dL Albumin (3.5-5.0) g/dL Lipase (23-300) U/L Disposition Clinical Impression: Chest pain Disposition: HOME SELF-CARE Condition: Good Is patient prescribed a controlled substance at d/c from ED?: No Referrals: Joshua Mendoza MD [Primary Care Provider] - 1-2 days Decision to Admit Reason: Admit from EC Decision Date: 06/22/20 Decision Time: 13:46
[2020-06-22 12:40] LABS: Basophils # (A) 0.1 k/uL (0-0.2); Basophils % (A) 1 %; Eosinophils # (A) 0.4 k/uL (0-0.7); Eosinophils % (A) 5 %; HCT 36.5 % (34.0-46.0); HGB 12.3 gm/dL (11.4-16.0); Lymphocytes # (A) 1.8 k/uL (1.0-4.8); Lymphocytes % (A) 24 %; MCH 31.9 pg (25.0-35.0); MCHC 33.7 g/dL (31.0-37.0); MCV 94.6 fL (80.0-100.0); Mean Platelet Volume 6.6; Monocytes # (A) 0.4 k/uL (0-1.0); Monocytes % (A) 5 %; Neutrophils # (A) 4.8 k/uL (1.3-7.7); Neutrophils % (A) 62 %; Platelet Count 338 k/uL (150-450); RBC 3.86 m/uL (3.80-5.40); RDW 12.6 % (11.5-15.5); WBC 7.7 k/uL (3.8-10.6)
[2020-06-22 12:52] LABS: ALT 15 U/L (4-34); AST 25 U/L (14-36); African American GFR (CKD) >90 (>60 ml/min/1.73 sqM); Albumin 3.9 g/dL (3.5-5.0); Alkaline Phosphatase 159 U/L (38-126); Anion Gap 7 mmol/L; Blood Urea Nitrogen 20 mg/dL (7-17); Calcium 10.2 mg/dL (8.4-10.2); Carbon Dioxide 27 mmol/L (22-30); Chloride 104 mmol/L (98-107); Glucose 94 mg/dL (74-99); Lipase 78 U/L (23-300); Magnesium 1.9 mg/dL (1.6-2.3); Non-African American GFR(CKD) >90 (>60 ml/min/1.73 sqM); Potassium 4.5 mmol/L (3.5-5.1); Sodium 138 mmol/L (137-145); Total Bilirubin 0.2 mg/dL (0.2-1.3); Total Protein 6.6 g/dL (6.3-8.2)
[2020-06-22 12:57] LABS: D-Dimer 0.32 mg/L FEU (<0.60); INR 0.9 (<1.2); Partial Thromboplastin Time 23.6 sec (22.0-30.0); Prothrombin Time 9.6 sec (9.0-12.0)
--- NOTE | 2020-06-22 13:19 | XR ---
EXAMINATION TYPE: XR chest 2V DATE OF EXAM: 06/22/2020 COMPARISON: Chest x-ray dated 09/27/2014 HISTORY: Chest pain and shortness of breath TECHNIQUE: Frontal and lateral views of the chest are obtained. FINDINGS: There is no focal air space opacity, pleural effusion, or pneumothorax seen. The cardiac silhouette size is within normal limits. The osseous structures are intact, there is thoracic spond ylosis. IMPRESSION: No acute cardiopulmonary process.
[2020-06-22] MEDS ORDERED: ASPIRIN 325 MG TAB PO STA (13:20)
[2020-06-22] MEDS ORDERED: MORPHINE SULFATE 4 MG/ML SYRINGE IV PRN (13:44)
[2020-06-22] MEDS ORDERED: NALOXONE 0.4 MG/ML 1 ML VIAL IV PRN (13:44)
[2020-06-22] MEDS: BACLOFEN 10 MG TAB PO PRN (17:06)
[2020-06-22] MEDS: HYDROcodone/APAP 10-325MG 1 EACH TAB PO PRN (17:06)
[2020-06-22] MEDS: METOPROLOL TARTRATE 25 MG TAB PO SCH (20:03)
[2020-06-23] MEDS: LEVOTHYROXINE 100 MCG TAB PO SCH (05:10)
[2020-06-23] MEDS: HYDROcodone/APAP 10-325MG 1 EACH TAB PO PRN ×3 (05:10→20:27)
[2020-06-23] MEDS: BACLOFEN 10 MG TAB PO PRN ×3 (05:13→20:27)
[2020-06-23] MEDS: METOPROLOL TARTRATE 25 MG TAB PO SCH ×2 (09:21→20:27)
[2020-06-23 09:50] LABS: HCT 35.8 % (34.0-46.0); HGB 12.6 gm/dL (11.4-16.0); MCH 33.4 pg (25.0-35.0); MCHC 35.3 g/dL (31.0-37.0); MCV 94.7 fL (80.0-100.0); Mean Platelet Volume 6.7; Platelet Count 293 k/uL (150-450); RBC 3.78 m/uL (3.80-5.40); RDW 12.3 % (11.5-15.5); WBC 7.5 k/uL (3.8-10.6)
[2020-06-23 09:59] LABS: ALT 14 U/L (4-34); AST 24 U/L (14-36); African American GFR (CKD) >90 (>60 ml/min/1.73 sqM); Albumin 3.8 g/dL (3.5-5.0); Albumin/Globulin Ratio 1.5; Alkaline Phosphatase 142 U/L (38-126); Anion Gap 6 mmol/L; Blood Urea Nitrogen 19 mg/dL (7-17); Calcium 9.6 mg/dL (8.4-10.2); Carbon Dioxide 30 mmol/L (22-30); Chloride 101 mmol/L (98-107); Globulin 2.6 g/dL; Glucose 89 mg/dL (74-99); Non-African American GFR(CKD) >90 (>60 ml/min/1.73 sqM); Potassium 4.1 mmol/L (3.5-5.1); Sodium 137 mmol/L (137-145); Total Bilirubin 0.5 mg/dL (0.2-1.3); Total Protein 6.4 g/dL (6.3-8.2)
--- NOTE | 2020-06-23 12:31 | P.HPCAR ---
History of Present Illness H&P Date: 06/23/20 The patient is a 55-year-old female with past medical history of smoking and chest pain. The patient has been following in the office with Dr. Donato. The patient was seen and evaluated in early April, where it was recommended that she undergo cardiac testing. She continued to have chest discomfort despite undergoing echocardiogram and event monitor. She was scheduled to undergo stress testing, however became claustrophobic with nuclear imaging in the testing was aborted. She is scheduled to undergo stress echocardiogram on July 05. Echocardiogram at that time showed EF of 50-55% with small hypokinetic area be inferior wall, as well as moderate mitral regurgitation. She presents to the emergency room with chest heaviness. She states she develops a tightness in her chest with associated diaphoresis. Occasionally these episodes are associated with exertion. She also reports dizziness and lightheadedness. DIAGNOSTICS: EKG shows sinus rhythm without ST or T-wave changes Chest x-ray shows no acute cardiopulmonary process Previous echocardiogram shows mildly reduced LV function at 50-55% with hypokinesis in the inferior wall Laboratory data WBC 7.5, hemoglobin 12.6, hematocrit 35.8, platelet 293, sodium 137, potassium 4.1, BUN 19, creatinine 0.57, troponins negative 3, BNP 236 PAST MEDICAL HISTORY: current smoker, significant family history of premature coronary artery disease REVIEW OF SYSTEMS: No fever or chills. No cough or expectoration. No diaphoresis. Patient denies headache, blurred vision, double vision. Patient denies any stomach discomfort. No nausea, vomiting. No hematochezia. No hematemesis. Denies any black stools or blood in his stools. Denies dysuria or hematuria. No muscle weakness or numbness. Positive for dizziness. Positive for chest heaviness. Positive for shortness of breath with exertion. PHYSICAL EXAMINATION: This is a 55-year-old email in no apparent distress at the time of my examination. HEENT: Head is atraumatic, normocephalic. Pupils are equal, round. Sclerae anicteric. Conjunctivae are clear. Mucous membranes of the mouth are moist. Neck is supple. There is no jugular venous distention. No carotid bruit is heard. CHEST EXAMINATION: Lungs are clear to auscultation. No chest wall tenderness is noted on palpation or with deep breathing. HEART EXAMINATION: Heart regular rate and rhythm. S1, S2 heard. No murmurs, gal lops or rub. ABDOMEN: Soft, nontender. Bowel sounds are heard. No organomegaly noted. EXTREMITIES: 2+ peripheral pulses with no evidence of peripheral edema and no calf tenderness noted. NEUROLOGIC EXAMINATION: Patient is awake, alert and oriented x3. FINAL ASSESSMENT AND PLAN: Chest discomfort, possibly angina with her smoking history as well as hypokinetic area on echocardiogram Current smoker Family history of premature coronary artery disease Mitral regurgitation, moderate Enlarged ascending aorta at 3.7 cm PLAN: Continue beta jose and low-dose aspirin Heart cath pending Thursday with Dr. Brown Physical Exam Vitals: Vital Signs Temp Pulse Pulse Pulse Resp BP BP 06/23/20 07:00 97.5 F L 76 16 103/64 06/23/20 01:05 98.2 F 74 18 118/71 06/22/20 23:13 64 16 128/78 06/22/20 19:20 97.9 F 74 16 132/81 06/22/20 19:04 97.3 F L 80 18 121/77 06/22/20 19:00 80 18 121/77 06/22/20 18:00 18 126/70 06/22/20 17:00 18 06/22/20 16:00 69 18 129/80 06/22/20 15:00 71 18 06/22/20 14:53 64 18 140/81 06/22/20 13:53 18 06/22/20 12:53 18 Pulse Ox 06/23/20 07:00 94 L 06/23/20 01:05 97 06/22/20 23:13 99 06/22/20 19:20 99 06/22/20 19:04 97 06/22/20 19:00 97 06/22/20 18:00 97 06/22/20 17:00 97 06/22/20 16:00 97 06/22/20 15:00 97 06/22/20 14:53 97 06/22/20 13:53 06/22/20 12:53 Intake and Output 06/22/20 06/23/20 06/23/20 22:59 06:59 14:59 Other: # Voids 1 3 Weight 65.771 kg Past Medical History Past Medical History: Osteoarthritis (OA), Thyroid Disorder Additional Past Medical History / Comment(s): emphysema,osteoporosis, gastric ulcers, elevated heart rates. History of Any Multi-Drug Resistant Organisms: None Reported Past Surgical History: Cholecystectomy, Hysterectomy Additional Past Surgical History / Comment(s): tumor removed left index finger, right shoulder sx. dilated esophagus, multiple egd's Past Psychological History: Anxiety Smoking Status: Former smoker Past Alcohol Use History: None Reported Past Drug Use History: None Reported Additional Drug Use History / Comment(s): stopped smoking 06/20/2019 as per patient - Past Family History Mother Family Medical History: Diabetes Mellitus, Hypertension Father Family Medical History: Hypertension Physical Examination Vital Signs Temp Pulse Pulse Pulse Resp BP BP 06/23/20 07:00 97.5 F L 76 16 103/64 06/23/20 01:05 98.2 F 74 18 118/71 06/22/20 23:13 64 16 128/78 06/22/20 19:20 97.9 F 74 16 132/81 06/22/20 19:04 97.3 F L 80 18 121/77 06/22/20 19:00 80 18 121/77 06/22/20 18:00 18 126/70 06/22/20 17:00 18 06/22/20 16:00 69 18 129/80 06/22/20 15:00 71 18 06/22/20 14:53 64 18 140/81 06/22/20 13:53 18 06/22/20 12:53 18 Pulse Ox 06/23/20 07:00 94 L 06/23/20 01:05 97 06/22/20 23:13 99 06/22/20 19:20 99 06/22/20 19:04 97 06/22/20 19:00 97 06/22/20 18:00 97 06/22/20 17:00 97 06/22/20 16:00 97 06/22/20 15:00 97 06/22/20 14:53 97 06/22/20 13:53 06/22/20 12:53 Intake and Output 06/22/20 06/23/20 06/23/20 22:59 06:59 14:59 Other: # Voids 1 3 Weight 65.771 kg Results 06/23/20 08:35 06/23/20 08:35 Cardiac Enzymes 06/22/20 06/22/20 06/22/20 Range/Units 12:20 12:20 15:36 AST 25 (14-36) U/L Troponin I <0.012 <0.012 (0.000-0.034) ng/mL 06/22/20 06/23/20 Range/Units 18:25 08:35 AST 24 (14-36) U/L Troponin I <0.012 (0.000-0.034) ng/mL Coagulation 06/22/20 Range/Units 12:20 PT 9.6 (9.0-12.0) sec APTT 23.6 (22.0-30.0) sec CBC 06/22/20 06/23/20 Range/Units 12:20 08:35 WBC 7.7 7.5 (3.8-10.6) k/uL RBC 3.86 3.78 L (3.80-5.40) m/uL Hgb 12.3 12.6 (11.4-16.0) gm/dL Hct 36.5 35.8 (34.0-46.0) % Plt Count 338 293 (150-450) k/uL Comprehensive Metabolic Panel 06/22/20 06/23/20 Range/Units 12:20 08:35 Sodium 138 137 (137-145) mmol/L Potassium 4.5 4.1 (3.5-5.1) mmol/L Chloride 104 101 (98-107) mmol/L Carbon Dioxide 27 30 (22-30) mmol/L BUN 20 H 19 H (7-17) mg/dL Creatinine 0.54 0.57 (0.52-1.04) mg/dL Glucose 94 89 (74-99) mg/dL Calcium 10.2 9.6 (8.4-10.2) mg/dL AST 25 24 (14-36) U/L ALT 15 14 (4-34) U/L Alkaline Phosphatase 159 H 142 H (38-126) U/L Total Protein 6.6 6.4 (6.3-8.2) g/dL Albumin 3.9 3.8 (3.5-5.0) g/dL Current Medications Generic Name Dose Route Start Last Admin Trade Name Freq PRN Reason Stop Dose Admin Acetaminophen 650 mg 06/22/20 13:44 Acetaminophen Tab 325 Mg Tab PO Q6HR PRN Mild Pain or Fever > 100.5 Hydrocodone Bitart/Acetaminophen 1 each 06/22/20 16:25 06/23/20 05:10 Hydrocodone/Apap 10-325mg 1 Each Tab PO 1 each TID PRN Administration Pain Baclofen 10 mg 06/22/20 16:25 06/23/20 05:13 Baclofen 10 Mg Tab PO 10 mg TID PRN Administration Muscle Spasm Levothyroxine Sodium 100 mcg 06/23/20 06:30 06/23/20 05:10 Levothyroxine 100 Mcg Tab PO 100 mcg 0630 THIAGO Administration Metoprolol Tartrate 25 mg 06/22/20 21:00 06/23/20 09:21 Metoprolol Tartrate 25 Mg Tab PO 25 mg BID THIAGO Administration Morphine Sulfate 4 mg 06/22/20 13:44 06/22/20 15:12 Morphine Sulfate 4 Mg/Ml Syringe IV 4 mg Q4HR PRN Administration Severe Pain Naloxone HCl 0.2 mg 06/22/20 13:44 Naloxone 0.4 Mg/Ml 1 Ml Vial IV Q2M PRN Opioid Reversal Intake and Output 06/22/20 06/23/20 06/23/20 22:59 06:59 14:59 Other: # Voids 1 3 Weight 65.771 kg 06/23/20 08:35 06/23/20 08:35
[2020-06-23] MEDS: ACETAMINOPHEN TAB 325 MG TAB PO PRN (22:35)
--- NOTE | 2020-06-23 23:49 | P.HPIM ---
History of Present Illness H&P Date: 06/23/20 Chief Complaint: Chset pain Ms. Pelletier is a 55-year-old female with a past medical history of thyroid disorder and osteoarthritis, emphysema, osteoporosis coming in with a chief complaint of chest pain. Patient states that she was seen in Dr. Donato 's office last month and she was advised to undergo stress test. But she states that she became claustrophobic and so the test could not be completed. She was scheduled for another stress echo next month. Patient states that she continues to have chest pain, she felt like heaviness in the substernal area associated with some diaphoresis. She denied having any nausea or vomiting. She denied having any dizziness or lightheadedness. She denied having any difficulty in breathing. No orthopnea or PND. On review of systems she denies having any shortness of breath or cough. No abdominal pain nausea vomiting or diarrhea. No dysuria or hematuria. No joint swelling or pain. Vitals at the time of admission blood pressure 144 x 95, heart rate 79, respiratory rate 20, temperature 97.3, saturating at 99% on room air. She had a chest x-ray showing no acute cardiopulmonary process and EKG without any specific ST or T wave changes. She had labs done showing white count of 7.7 hemoglobin 12.3, platelets 338. Sodium 138, potassium 4.5, chloride 105, bicarb 27, BUN 20, creatinine 0.54. Troponin less than 0.012x3. Coronavirus negative. Review of Systems REVIEW OF SYSTEMS: CONSTITUTIONAL: No fever, fatigue or malaise HEENT: No recent visual problems or hearing problems. Denied any sore throat. CARDIOVASCULAR: As per HPI PULMONARY: no cough GASTROINTESTINAL: No diarrhea, no nausea, no vomiting, no abdominal pain. NEUROLOGICAL: Mild headaches, no weakness, no numbness. HEMATOLOGICAL: Denies any bleeding or petechiae. GENITOURINARY: Denies any burning micturition, frequency, or urgency. MUSCULOSKELETAL/RHEUMATOLOGICAL: No joint pain or swelling ENDOCRINE: Denies any polyuria or polydipsia. The rest of the 14-point review of systems is negative. Past Medical History Past Medical History: Osteoarthritis (OA), Thyroid Disorder Additional Past Medical History / Comment(s): emphysema,osteoporosis, gastric ulcers, elevated heart rates. History of Any Multi-Drug Resistant Organisms: None Reported Past Surgical History: Cholecystectomy, Hysterectomy Additional Past Surgical History / Comment(s): tumor removed left index finger, right shoulder sx. dilated esophagus, multiple egd's Past Psychological History: Anxiety Smoking Status: Former smoker Past Alcohol Use History: None Reported Past Drug Use History: None Reported Additional Drug Use History / Comment(s): stopped smoking 06/20/2019 as per patient - Past Family History Mother Family Medical History: Diabetes Mellitus, Hypertension Father Family Medical History: Hypertension Medications and Allergies Home Medications Medication Instructions Recorded Confirmed Type Baclofen 10 mg PO TID PRN 06/22/20 06/22/20 History HYDROcodone/APAP 10-325MG [[place] 1 tab PO TID PRN 06/22/20 06/22/20 History 10-325] Levothyroxine Sodium [Synthroid] 100 mcg PO DAILY 06/22/20 06/22/20 History Metoprolol Tartrate [Lopressor] 25 mg PO BID 06/22/20 06/22/20 History Allergies Allergy/AdvReac Type Severity Reaction Status Date / Time No Known Allergies Allergy Verified 06/22/20 13:55 Physical Exam Vitals: Vital Signs Temp Pulse Pulse Pulse Resp BP BP 06/23/20 07:00 97.5 F L 76 16 103/64 06/23/20 01:05 98.2 F 74 18 118/71 06/22/20 23:13 64 16 128/78 06/22/20 19:20 97.9 F 74 16 132/81 06/22/20 19:04 97.3 F L 80 18 121/77 06/22/20 19:00 80 18 121/77 06/22/20 18:00 18 126/70 06/22/20 17:00 18 06/22/20 16:00 69 18 129/80 06/22/20 15:00 71 18 06/22/20 14:53 64 18 140/81 06/22/20 13:53 18 06/22/20 12:53 18 06/22/20 11:49 97.3 F L 79 20 144/95 Pulse Ox 06/23/20 07:00 94 L 06/23/20 01:05 97 06/22/20 23:13 99 06/22/20 19:20 99 06/22/20 19:04 97 06/22/20 19:00 97 06/22/20 18:00 97 06/22/20 17:00 97 06/22/20 16:00 97 06/22/20 15:00 97 06/22/20 14:53 97 06/22/20 13:53 06/22/20 12:53 06/22/20 11:49 99 Intake and Output 06/22/20 06/23/20 06/23/20 22:59 06:59 14:59 Other: # Voids 1 3 Weight 65.771 kg PHYSICAL EXAMINATION: GENERAL: The patient is alert and oriented x3, not in any acute distress. HEENT: Pupils are round and equally reacting to light. EOMI. No scleral icterus. No conjunctival pallor. CARDIOVASCULAR: S1 and S2 present. PULMONARY: Chest is clear to auscultation, no wheezing or crackles. ABDOMEN: Soft, nontender, nondistended, normoactive bowel sounds. No palpable organomegaly. MUSCULOSKELETAL: No joint swelling EXTREMITIES: No cyanosis, clubbing. No pedal edema NEUROLOGICAL: Gross neurological examination did not reveal any focal deficits. SKIN: No rashes. Results CBC & Chem 7: 06/23/20 08:35 06/23/20 08:35 Labs: Abnormal Lab Results - Last 24 Hours (Table) 06/22/20 06/23/20 06/23/20 Range/Units 12:20 08:35 08:35 RBC 3.78 L (3.80-5.40) m/uL BUN 20 H 19 H (7-17) mg/dL Alkaline Phosphatase 159 H 142 H (38-126) U/L Thrombosis Risk Factor Assmnt - Choose All That Apply Any of the Below Risk Factors Present?: Yes Each Factor Represents 1 point: Age 41-60 years Other Risk Factors: No Other congenital or acquired thrombophilia - If yes, enter type in comment: No Thrombosis Risk Factor Assessment Total Risk Factor Score: 1 Thrombosis Risk Factor Assessment Level: Low Risk Assessment and Plan Assessment: ASSESSMENT Chest pain Hypothyroidism Moderate mitral regurgitation Ascending aorta enlarged at 3.7 cm PLAN: Patient has been undergoing outpatient evaluation for ongoing chest pain. She could not get a stress test done as she was claustrophobic. As the patient has ongoing chest pain, she is admitted for further evaluation with stress test/cardiac cath, pending decision by cardiology. Cardiology on board and following the patient. Further recommendations to follow depending on the progress of the patient.
[2020-06-24] MEDS: BACLOFEN 10 MG TAB PO PRN ×3 (06:06→21:15)
[2020-06-24] MEDS: LEVOTHYROXINE 100 MCG TAB PO SCH (06:06)
[2020-06-24] MEDS: HYDROcodone/APAP 10-325MG 1 EACH TAB PO PRN ×3 (06:06→21:14)
[2020-06-24] MEDS: METOPROLOL TARTRATE 25 MG TAB PO SCH ×2 (08:23→21:15)
[2020-06-24] MEDS ORDERED: ASPIRIN 81 MG PO SCH (09:00)
[2020-06-24] MEDS: ACETAMINOPHEN TAB 325 MG TAB PO PRN ×2 (09:34→23:13)
[2020-06-24] MEDS ORDERED: ALPRAZolam 0.25 MG TAB PO PRN (11:20)
[2020-06-24] MEDS ORDERED: NITROGLYCERIN SL TABS 0.4 MG TAB SUBLINGUAL PRN (11:20)
[2020-06-24] MEDS ORDERED: ALPRAZolam 0.5 MG TAB PO PRN (11:20)
--- NOTE | 2020-06-24 13:10 | P.PN ---
Subjective Progress Note Date: 06/24/20 The patient is a 55-year-old female with past medical history of smoking and significant family history of coronary artery disease, who initially presented with the hospital with worsening chest discomfort. Initially she was scheduled to undergo left heart cath, however it was recommended by her insurance that she have stress testing prior. Nuclear stress test was aborted due to chan trophobia. Previous echocardiogram showed EF of 50-55% with small hypokinetic area in the inferior wall and moderate mitral regurgitation. The patient was interviewed and examined lying in bed. Her main complaint today is chronic leg pains. She states they "hurt all the time." Her symptoms do not appear to be typical for claudication and she does have palpable pulses in her bilateral lower extremities. She states she has not had an acute episode of chest pain since her admission with associated diaphoresis, however she has been resting in bed since her admission yesterday. GENERAL: Well-appearing, well-nourished and in no acute distress. NECK: Supple without JVD or thyromegaly. LUNGS: Breath sounds clear to auscultation bilaterally. Respiration equal and unlabored. No wheezes, rales or rhonchi. HEART: Regular rate and rhythm without murmurs, rubs or gallops. S1 and S2 heard. EXTREMITIES: Normal range of motion, no edema. No clubbing or cyanosis. Peripheral pulses intact and strong. VITALS: Blood pressure 102/63, respiratory rate 16, pulse rate 72, temperature 98.2F, SpO2 100% on room air TELEMETRY: Sinus rhythm without ectopy overnight LABS: No new laboratory data IMPRESSION: Chest discomfort, possibly angina with her smoking history and abnormal echocardiogram Current smoker Family history of premature coronary artery disease Mitral regurgitation, moderate Enlarged ascending aorta 3.7 cm PLAN: Patient will be nothing by mouth after midnight in preparation for heart cath tomorrow with Dr. Brown Start low-dose magnesium supplementation for lower extremity leg cramping Consider MONIE outpatient if pain persists The patient has been seen and evaluated. Plan of care has been reviewed and agreed upon by Dr Hannah. Objective - Vital Signs Vital signs: Vital Signs Temp 98.2 F 06/24/20 07:00 Pulse 72 06/24/20 07:00 Resp 16 06/24/20 07:00 BP 102/63 06/24/20 07:00 Pulse Ox 100 06/24/20 07:00 Intake & Output 06/23/20 06/24/20 06/24/20 18:59 06:59 18:59 Other: # Voids 2 1 - Labs CBC & Chem 7: 06/23/20 08:35 06/23/20 08:35
[2020-06-24] MEDS: MAGNESIUM OXIDE 400 MG TAB PO SCH (13:32)
--- NOTE | 2020-06-24 16:17 | P.PN ---
Subjective Progress Note Date: 06/24/20 Principal diagnosis: Chest pain Ms. Pelletier is a 55-year-old female with a past medical history of thyroid disorder and osteoarthritis, emphysema, osteoporosis coming in with a chief complaint of chest pain. Patient states that she was seen in Dr. Donato 's office last month and she was advised to undergo stress test. But she states that she became claustrophobic and so the test could not be completed. She was scheduled for another stress echo next month. Patient states that she continues to have chest pain, she felt like heaviness in the substernal area associated with some diaphoresis. She denied having any nausea or vomiting. She denied having any dizziness or lightheadedness. She denied having any difficulty in breathing. No orthopnea or PND. On review of systems she denies having any shortness of breath or cough. No abdominal pain nausea vomiting or diarrhea. No dysuria or hematuria. No joint swelling or pain. Vitals at the time of admission blood pressure 144 x 95, heart rate 79, respiratory rate 20, temperature 97.3, saturating at 99% on room air. She had a chest x-ray showing no acute cardiopulmonary process and EKG without any specific ST or T wave changes. She had labs done showing white count of 7.7 hemoglobin 12.3, platelets 338. Sodium 138, potassium 4.5, chloride 105, bicarb 27, BUN 20, creatinine 0.54. Troponin less than 0.012x3. Coronavirus negative. On 06/16/2020 - patient is seen and examined at the bedside. Patient states that she still has the chest discomfort. No difficulty in breathing or cough. No fever chills or rigors. Patient complains of chronic leg pain that this has been an ongoing issue for. She denies having any ulcers or sores in her lower extremities. Patient denies having any abdominal pain nausea vomiting or diarrhea. No dysuria or hematuria. On reviewing vitals temperature of 98.2, heart 72, respiratory 16, blood pressure 10 6 x 63, saturating at 100% on room air. No new labs from this morning. Active Medications Acetaminophen (Acetaminophen Tab 325 Mg Tab) 650 mg PO Q6HR PRN PRN Reason: Mild Pain or Fever > 100.5 Last Admin: 06/24/20 09:34 Dose: 650 mg Documented by: Hydrocodone Bitart/Acetaminophen (Hydrocodone/Apap 10-325mg 1 Each Tab) 1 each PO TID PRN PRN Reason: Pain Last Admin: 06/24/20 13:27 Dose: 1 each Documented by: Alprazolam (Alprazolam 0.25 Mg Tab) 0.25 mg PO Q6HR PRN PRN Reason: Mild Anxiety Alprazolam (Alprazolam 0.5 Mg Tab) 0.5 mg PO Q6HR PRN PRN Reason: Moderate Anxiety Aspirin (Aspirin 325 Mg Tab) 325 mg PO ONCE ONE Stop: 06/25/20 06:01 Aspirin (Aspirin 81 Mg) 81 mg PO DAILY [facility] Atorvastatin Calcium (Atorvastatin 80 Mg Tab) 80 mg PO ONCE ONE Stop: 06/25/20 06:01 Baclofen (Baclofen 10 Mg Tab) 10 mg PO TID PRN PRN Reason: Muscle Spasm Last Admin: 06/24/20 13:27 Dose: 10 mg Documented by: Sodium Chloride 1,000 ml/ IV (Solution) 1,000 mls @ 65.771 mls/hr IV .[id number] ONE Stop: 06/25/20 15:12 Heparin Sodium (Porcine) 10, (000 unit/ Sodium Chloride) 1,001 mls @ 999 mls/hr IRRIGATION ONCE PRN PRN Reason: INTRA-OP Stop: 06/25/20 23:00 Heparin Sodium (Porcine) 2,500 (unit/ Sodium Chloride) 250.5 mls @ 250 mls/hr IRRIGATION ONCE PRN PRN Reason: INTRA-OP Stop: 06/25/20 23:00 Levothyroxine Sodium (Levothyroxine 100 Mcg Tab) 100 mcg PO 0630 [facility] Last Admin: 06/24/20 06:06 Dose: 100 mcg Documented by: Magnesium Oxide (Magnesium Oxide 400 Mg Tab) 400 mg PO DAILY [facility] Last Admin: 06/24/20 13:32 Dose: 400 mg Documented by: Metoprolol Tartrate (Metoprolol Tartrate 25 Mg Tab) 25 mg PO BID [facility] Last Admin: 06/24/20 08:23 Dose: 25 mg Documented by: Morphine Sulfate (Morphine Sulfate 4 Mg/Ml Syringe) 4 mg IV Q4HR PRN PRN Reason: Severe Pain Last Admin: 06/22/20 15:12 Dose: 4 mg Documented by: Naloxone HCl (Naloxone 0.4 Mg/Ml 1 Ml Vial) 0.2 mg IV Q2M PRN PRN Reason: Opioid Reversal Nitroglycerin (Nitroglycerin Sl Tabs 0.4 Mg Tab) 0.4 mg SUBLINGUAL Q5M PRN PRN Reason: Chest Pain Objective - Vital Signs Vital signs: Vital Signs Temp 98.2 F 06/24/20 07:00 Pulse 72 06/24/20 07:00 Resp 16 06/24/20 07:00 BP 102/63 06/24/20 07:00 Pulse Ox 100 06/24/20 07:00 Intake & Output 06/23/20 06/24/20 06/24/20 18:59 06:59 18:59 Other: # Voids 2 1 - Exam PHYSICAL EXAMINATION: GENERAL: The patient is alert and oriented x3, not in any acute distress. HEENT: Pupils are round and equally reacting to light. EOMI. No scleral icterus. No conjunctival pallor. CARDIOVASCULAR: S1 and S2 present. PULMONARY: Chest is clear to auscultation, no wheezing or crackles. ABDOMEN: Soft, nontender, nondistended, normoactive bowel sounds. No palpable organomegaly. MUSCULOSKELETAL: No joint swelling EXTREMITIES: No cyanosis, clubbing. No pedal edema, bilateral dorsalis pedis felt. NEUROLOGICAL: Gross neurological examination did not reveal any focal deficits. SKIN: No rashes. - Labs CBC & Chem 7: 06/23/20 08:35 06/23/20 08:35 Assessment and Plan Assessment: ASSESSMENT Chest pain Hypothyroidism Moderate mitral regurgitation Ascending aorta enlarged at 3.7 cm PLAN: Patient has been undergoing outpatient evaluation for ongoing chest pain. She could not get a stress test done as she was claustrophobic. As the patient has ongoing chest pain, she is admitted for further evaluation . Cardiology on board and following the patient, tentatively scheduled for cardiac cat heterization tomorrow morning. Patient to be kept nothing by mouth tonight for a.m. procedure. Further recommendations to follow depending on the progress of the patient.
[2020-06-25] MEDS ORDERED: SODIUM CHLORIDE 0.9% 1,000 ML in EMPTY BAG 1 BAG IV ONE
[2020-06-25 02:19] VITALS: RESP 16
[2020-06-25] MEDS: LEVOTHYROXINE 100 MCG TAB PO SCH (05:40)
[2020-06-25] MEDS: METOPROLOL TARTRATE 25 MG TAB PO SCH (05:40)
[2020-06-25 05:41] LABS: Glucose,Whole Blood 101 mg/dL (75-99)
[2020-06-25] MEDS: MAGNESIUM OXIDE 400 MG TAB PO SCH (05:41)
[2020-06-25] MEDS ORDERED: ATORVASTATIN 80 MG TAB PO ONE (06:00)
[2020-06-25] MEDS ORDERED: ASPIRIN 325 MG TAB PO ONE (06:00)
[2020-06-25] MEDS ORDERED: HEPARIN SODIUM,PORCINE 2,500 UNIT in SODIUM CHLORIDE 0.9% 250 ML IRRIGATION PRN (07:00)
[2020-06-25] MEDS ORDERED: HEPARIN SODIUM,PORCINE 10,000 UNIT in SODIUM CHLORIDE 0.9% 1,000 ML IRRIGATION PRN (07:00)
[2020-06-25] MEDS: HYDROcodone/APAP 10-325MG 1 EACH TAB PO PRN (08:36)
[2020-06-25] MEDS: BACLOFEN 10 MG TAB PO PRN (08:36)
[2020-06-25] MEDS: ACETAMINOPHEN TAB 325 MG TAB PO PRN (12:23)
[2020-06-25] MEDS ORDERED: IV FLUID CONTINUATION 950 ML IV ONE (13:18)
[2020-06-25] MEDS ORDERED: LIDOCAINE 1% INJ 10MG/ML (20 ML MDV) ONE (13:26)
[2020-06-25] MEDS ORDERED: VERAPAMIL 2.5 MG/ML 2 ML AMP ONE (13:26)
[2020-06-25] MEDS ORDERED: MIDAZOLAM 2 MG/2 ML VIAL IV ONE (13:28)
[2020-06-25] MEDS ORDERED: LIDOCAINE 1% INJ 10MG/ML (20 ML MDV) SQ ONE (13:28)
[2020-06-25] MEDS: VERAPAMIL SYRINGE (5 MG/10 ML) INTRAARTER ONE ×2 (13:30→13:39)
[2020-06-25] MEDS ORDERED: HEPARIN SODIUM 1,000 UN/ML (10ML VL) ONE (13:32)
[2020-06-25] MEDS ORDERED: IOPAMIDOL-370 125ML BTL INJ ONE (13:39)
[2020-06-25] MEDS ORDERED: RX INFO: IV CONTRAST WAS GIVEN 1 EACH MISC MISCELLANE PRN (13:43)
[2020-06-25] MEDS ORDERED: SODIUM CHLORIDE 0.9% 1,000 ML IV SCH (13:45)
--- NOTE | 2020-06-25 16:18 | CC ---
CARDIAC CATHETERIZATION REPORT DATE OF SERVICE: June 25, 2020. PERFORMING PHYSICIAN: Damion Brown MD. PROCEDURE PERFORMED: Selective right and left coronary angiogram. INDICATION: This is a very pleasant 55-year-old female patient with hypertension and dyslipidemia who was admitted to the hospital with chest discomfort concerning for angina and because of that, a heart catheterization was advised. APPROACH: Right radial artery. COMPLICATION: None. LEVEL OF SEDATION: Moderate with sedation length of 14 minutes. PROCEDURE DESCRIPTION: After obtaining an informed consent, the patient was brought to the cardiac manager labor relations. The right radial artery was cannulated using micropuncture technique and a micropuncture wire passed easily then I placed a 5-Lao sheath in the right radial artery. I did give the patient 2 mg of verapamil IA and 6000 units of heparin IV. Selective right and left coronary angiogram performed with JR4 and JL3.5 catheters. Left heart catheterization was not performed. The procedure was completed without any complication. SELECTIVE CORONARY ANGIOGRAM: 1. The right coronary artery is a large caliber vessel and it is a dominant vessel. The RCA is angiographically normal. It distally bifurcates into PDA and PLV branches, both appeared to be angiographically normal. 2. The left main is angiographically normal. It bifurcates into LCX and LAD. 3. The LCX is a large caliber vessel. It is a nondominant vessel. The proximal left circumflex is angiographically normal and gives rise into first OM branch, which appeared to be angiographically normal. Before the circumflex become very tortuous, but appeared to be normal after that. 4. The LAD is a large caliber vessel. It is angiographically normal. It gives rise into first and second diagonal branches, both appeared to be angiographically normal. CONCLUSION: Normal coronary angiogram. POSTPROCEDURE MANAGEMENT: Medical treatment and follow up with the patient. MMODL / IJN: [id number] /
--- NOTE | 2020-06-25 17:56 | P.DS ---
Providers Date of admission: 06/23/20 15:36 Expected date of discharge: 06/25/20 Attending physician: Joshua Mendoza Consults: 06/22/20 13:44 Consult Physician Routine Consulting Provider: Damion Brown Consult Reason/Comments: CP Do you want consulting provider notified?: Yes Primary care physician: Joshua Mendoza Hospital Course: This is discharge summary 55-year-old white female admitted for chest pain. The patient ended up having cardiac catheterization which is nominal. Enzymatic elevation was not seen. She is discharged home on her home medication with nitroglycerin once cleared by cardiology. The patient seems to tolerate diet and ambulating with less difficulty as the days have gone by through this hospitalization per no voiding difficulties. The patient will follow up with me in 3-5 days Patient Condition at Discharge: Good Plan - Discharge Summary New Discharge Prescriptions: New Nitroglycerin Sl Tabs [Nitrostat] 0.4 mg SUBLINGUAL Q5M PRN #50 tab PRN Reason: Chest Pain Continue HYDROcodone/APAP 10-325MG [[place] 10-325] 1 tab PO TID PRN PRN Reason: Pain Metoprolol Tartrate [Lopressor] 25 mg PO BID Levothyroxine Sodium [Synthroid] 100 mcg PO DAILY Baclofen 10 mg PO TID PRN PRN Reason: Muscle Spasm Discharge Medication List Baclofen 10 mg PO TID PRN 06/22/20 [History] HYDROcodone/APAP 10-325MG [[place] 10-325] 1 tab PO TID PRN 06/22/20 [History] Levothyroxine Sodium [Synthroid] 100 mcg PO DAILY 06/22/20 [History] Metoprolol Tartrate [Lopressor] 25 mg PO BID 06/22/20 [History] Nitroglycerin Sl Tabs [Nitrostat] 0.4 mg SUBLINGUAL Q5M PRN #50 tab 06/25/20 [Rx] Follow up Appointment(s)/Referral(s): Damion Brown MD [STAFF PHYSICIAN] - 06/29/20 3:15 pm (Follow up in the office for a site check with Dr. Brown as scheduled for you) Joshua Mendoza MD [Primary Care Provider] - 1-2 days Patient Instructions/Handouts: *[facility] - After Heart Catheterization - Web Production Assistant Instructions, After Radial Heart Catheterization (GEN) Activity/Diet/Wound Care/Special Instructions: See Activity Restriction Instructions Discharge Disposition: HOME SELF-CARE
[2020-06-25 19:29] VITALS: BP 145/85; PULSE 99; TEMP 97.5
[2020-06-26] MEDS ORDERED: ASPIRIN 81 MG PO SCH (09:00)
== END 2020-06-25 19:15 | disposition home or self-care (01) ==
LOC: EC 11:46 → 6NMEDSUR 13:45 → OBSVTOIN 06-23 15:36 → INTOOBSV 06-23 15:36 → MERGE 06-23 15:36 → UNDODISIN 06-25 19:15
PROVIDERS: ADMIT Family Medicine; ATTEND Family Medicine
DX: R07.89 Other chest pain (principal); R61 Generalized hyperhidrosis; R42 Dizziness and giddiness; R94.31 Abnormal electrocardiogram [ECG] [EKG]; F17.200 Nicotine dependence, unspecified, uncomplicated; I34.0 Nonrheumatic mitral (valve) insufficiency; G89.29 Other chronic pain; M79.606 Pain in leg, unspecified; M19.90 Unspecified osteoarthritis, unspecified site; E78.5 Hyperlipidemia, unspecified; E03.9 Hypothyroidism, unspecified; J43.9 Emphysema, unspecified; M81.0 Age-related osteoporosis without current pathological fracture; Z20.822 Contact with and (suspected) exposure to COVID-19; F41.9 Anxiety disorder, unspecified; F40.240 Claustrophobia; I77.810 Thoracic aortic ectasia; Z90.49 Acquired absence of other specified parts of digestive tract; Z87.11 Personal history of peptic ulcer disease; Z79.899 Other long term (current) drug therapy; Z79.890 Hormone replacement therapy; Z79.891 Long term (current) use of opiate analgesic; Z90.710 Acquired absence of both cervix and uterus; Z87.19 Personal history of other diseases of the digestive system; Z87.42 Personal history of other diseases of the female genital tract; Z87.39 Personal history of other diseases of the musculoskeletal system and connective tissue; Z98.890 Other specified postprocedural states; Z82.49 Family history of ischemic heart disease and other diseases of the circulatory system; Z83.3 Family history of diabetes mellitus
CPT/HCPCS: 93005 ×2; 96374; 99285; 36415; 93454; 85379; 83880; 80053 ×2; 83690; 83735; 84484; 85025; 85027; 85610; 85730; 87635; 71046; G0378 ×4; C1769; C1894; J2250; J2270; J2001; J1644; Q9967

== ENCOUNTER 2021-04-23 17:41 | Emergency (ER) | payer MEDICARE, OTHER ==
[2021-04-23 17:53] VITALS: BP 150/89; PULSE 107; RESP 20; TEMP 97.4
--- NOTE | 2021-04-23 19:02 | XR ---
EXAMINATION TYPE: XR chest 2V DATE OF EXAM: 04/23/2021 6:22 PM COMPARISON:Chest radiographs from 06/22/2020 TECHNIQUE: Frontal view of the chest. CLINICAL INDICATION:Female, 55 years old with history of cough, congestion, hx pneumonia; FINDINGS: Lungs/Pleura: There is no evidence of pleural effusion, focal consolidation, or pneumothorax. Pulmonary vascularity: Unremarkable. Heart/mediastinum: Cardiomediastinal silhouette is unremarkable. Musculoskeletal:No acute osseous pathology. IMPRESSION: No acute cardiopulmonary disease/process.
[2021-04-23] MEDS ORDERED: KETOROLAC 15 MG/ML 1 ML VIAL IVP STA (20:42)
[2021-04-23] MEDS ORDERED: SODIUM CHLORIDE 0.9% 1,000 ML IV STA (20:42)
[2021-04-23] MEDS ORDERED: AMOXIC-POT CLAV 875MG STARTER PACK 2 TAB BTL PO STA (21:23)
[2021-04-23] MEDS ORDERED: predniSONE 50 MG TAB PO STA (21:24)
--- NOTE | 2021-04-23 21:25 | ED ---
URI HPI - General Chief Complaint: Upper Respiratory Infection Stated Complaint: Cough/headache/sob Time Seen by Provider: 04/23/21 19:06 Source: patient Mode of arrival: ambulatory Limitations: no limitations - History of Present Illness Initial Comments: 55 year-old female patient presents to the emergency department for evaluation of cough, headache, and shortness of breath. States she has been sick for the last 2-3 weeks. States she feels like she is not getting better. She states today she started to have some mild shortness of breath and a burning in her chest. She does have some sputum production. Does have inhalers at home. She denies nausea or vomiting. Denies any constipation or diarrhea. She denies dizziness or weakness. Denies any sweats. Denies arm, neck, or jaw pain. - Related Data Home Medications Medication Instructions Recorded Confirmed Meloxicam [Mobic] 15 mg PO DAILY PRN 01/08/17 04/23/21 Baclofen 10 mg PO TID PRN 10/23/17 04/23/21 DULoxetine HCL [Cymbalta] 120 mg PO DAILY 05/18/20 04/23/21 Ergocalciferol [Vitamin D2 (1250 1,250 mcg PO TH 05/18/20 04/23/21 Mcg = 04606 Iu)] HYDROcodone/APAP 10-325MG [[place] 1 tab PO TID PRN 06/22/20 04/23/21 10-325] Levothyroxine Sodium [Synthroid] 100 mcg PO DAILY 06/22/20 04/23/21 Acetaminophen Tab [Tylenol Tab] 1,000 mg PO Q6HR PRN 04/23/21 04/23/21 Budesonide/Formoterol Fumarate 2 puff INHALATION RT-BID PRN 04/23/21 04/23/21 [Symbicort 160-4.5 Mcg Inhaler] Multivitamins, Thera [Multivitamin 1 tab PO DAILY 04/23/21 04/23/21 (formulary)] amLODIPine [Norvasc] 2.5 mg PO HS 04/23/21 04/23/21 Previous Rx's Medication Instructions Recorded Nitroglycerin Sl Tabs [Nitrostat] 0.4 mg SUBLINGUAL Q5M PRN #50 tab 06/25/20 Amoxic-Pot Clav 875-125Mg 1 tab PO Q12HR #20 tablet 04/23/21 [Augmentin 875-125] predniSONE 50 mg PO DAILY #5 tablet 04/23/21 Allergies Allergy/AdvReac Type Severity Reaction Status Date / Time No Known Allergies Allergy Verified 04/23/21 19:49 Review of Systems ROS Statement: Those systems with pertinent positive or pertinent negative responses have been documented in the HPI. ROS Other: All systems not noted in ROS Statement are negative. Past Medical History Past Medical History: Chest Pain / Angina, COPD, GERD/Reflux, Musculoskeletal Disorder, Osteoarthritis (OA), Sleep Apnea/CPAP/BIPAP, Thyroid Disorder Additional Past Medical History / Comment(s): emphysema,osteoporosis, gastric ulcers, elevated heart rates. History of Any Multi-Drug Resistant Organisms: None Reported Past Surgical History: Bladder Surgery, Cholecystectomy, Hernia Repair, Hysterectomy, Orthopedic Surgery, Tonsillectomy Additional Past Surgical History / Comment(s): tumor removed left index finger, right shoulder sx. dilated esophagus, multiple egd's Past Anesthesia/Blood Transfusion Reactions: Motion Sickness, No Reported Reaction Additional Past Anesthesia/Blood Transfusion Reaction / Comment(s): SURGERY x1 HAD TO BE INTUBATED -HAD PROBLEMS BREATHING Past Psychological History: Anxiety, No Psychological Hx Reported Smoking Status: Current every day smoker, Former smoker Past Alcohol Use History: None Reported, Rare General Exam Limitations: no limitations General appearance: alert, in no apparent distress, other (This is a well- developed, well-nourished adult female in no acute distress.) ENT exam: Present: normal exam, normal oropharynx, mucous membranes moist Respiratory exam: Present: normal lung sounds bilaterally. Absent: respiratory distress, wheezes, rales, rhonchi, stridor Cardiovascular Exam: Present: regular rate, normal rhythm, normal heart sounds. Absent: systolic murmur, diastolic murmur, rubs, gallop, clicks GI/Abdominal exam: Present: soft, normal bowel sounds. Absent: distended, tend erness, guarding, rebound, rigid Neurological exam: Present: alert, oriented X3, CN II-XII intact Psychiatric exam: Present: normal affect, normal mood Skin exam: Present: warm, dry, intact, normal color. Absent: rash Course Vital Signs 04/23/21 17:50 Temperature 97.4 F L Pulse Rate 107 H Respiratory 20 Rate Blood Pressure 150/89 O2 Sat by Pulse 98 Oximetry Medical Decision Making - Medical Decision Making 55-year-old female patient presents to the emergency department today for evaluation of persistent cough, congestion, headache. She has been sick for the last 2 weeks. Reporting some shortness of breath and burning in her chest today. Lungs are clear to auscultation with good air movement. She is in no respiratory distress and able to speak full sentences. Chest x-ray was negative. Plan was to draw labs checked troponin and EKG. Patient decided she did not want to undergo further testing would like to be discharged. Patient has had nasal congestion and facial pain for the last 2 weeks, we'll treat her for sinusitis with Augmentin will try course of steroids. She is instructed to continue her home inhalers. She is instructed to follow up with her primary care physician for recheck in 1-2 days. Return parameters were discussed in detail. She verbalizes understanding and agrees with this plan. My attending is Dr. Segura. - Lab Data Lab Results 04/23/21 Range/Units 17:55 Coronavirus (PCR) Not Detected (Not Detectd) - Radiology Data Radiology results: report reviewed, image reviewed 2 views of the chest are obtained. Report was reviewed in its entirety. Impression by Dr. Ferrari shows no acute cardiopulmonary disease/process. Disposition Clinical Impression: Sinus infection, Bronchitis Disposition: HOME SELF-CARE Condition: Good Instructions (If sedation given, give patient instructions): Sinusitis (ED), Acute Bronchitis (ED) Additional Instructions: Take medications as directed. Follow-up with your primary care physician for recheck in 1-2 days. Return to the emergency department for any new, worsening, or concerning symptoms. Prescriptions: Amoxic-Pot Clav 875-125Mg [Augmentin 875-125] 1 tab PO Q12HR #20 tablet predniSONE 50 mg PO DAILY #5 tablet Is patient prescribed a controlled substance at d/c from ED?: No Referrals: Joshua Mendoza MD [Primary Care Provider] - 1-2 days Time of Disposition: 21:25
== END 2021-04-23 21:37 | disposition home or self-care (01) ==
LOC: EC 17:41
DX: R05.9 Cough, unspecified (principal); R51.9 Headache, unspecified; R06.02 Shortness of breath; M19.90 Unspecified osteoarthritis, unspecified site; J44.9 Chronic obstructive pulmonary disease, unspecified; Z86.79 Personal history of other diseases of the circulatory system; Z20.822 Contact with and (suspected) exposure to COVID-19; Z79.899 Other long term (current) drug therapy; Z79.01 Long term (current) use of anticoagulants
CPT/HCPCS: 87635; 71046; 99285; 96374; J7512; 96372

== ENCOUNTER → 2021-05-08 | Outpatient (CLI) | payer MEDICARE, OTHER ==
[2021-05-08 23:24] LABS: T4, Free (Free Thyroxine) 1.34 ng/dL (0.800-1.800)
== END | disposition home or self-care (01) ==
LOC: LABWHC1 16:25
PROVIDERS: ATTEND Internal Medicine Interventional Cardiology
DX: E06.9 Thyroiditis, unspecified (principal)
CPT/HCPCS: 36415; 84439; 84443

== ENCOUNTER → 2021-08-28 | Outpatient (CLI) | payer MEDICARE, OTHER ==
--- NOTE | 2021-08-28 13:11 | XR ---
Lumbar spine HISTORY: Spinal stenosis, low back pain 3 views the lumbar spine, comparison prior exam 01/13/2010 surgical clips are again noted in the right upper quadrant. Lumbar vertebral bodies show stable heigh t, alignment, and bone mineralization. Loss of disc height is again reduced at L5-S1, suspect vacuum phenomenon. There is multilevel spondylosis. Sclerosis is present in the posterior elements. IMPRESSION: Degenerative disc disease and facet arthropathy
== END | disposition home or self-care (01) ==
LOC: RADXRMAIN 11:50
PROVIDERS: ATTEND Internal Medicine Geriatric Medicine
DX: M51.37 Other intervertebral disc degeneration, lumbosacral region (principal); M46.97 Unspecified inflammatory spondylopathy, lumbosacral region
CPT/HCPCS: 72100

== ENCOUNTER → 2021-12-24 | Outpatient (CLI) | payer MEDICARE, OTHER ==
--- NOTE | 2021-12-24 15:40 | XR ---
EXAMINATION TYPE: XR chest 2V DATE OF EXAM: 12/24/2021 COMPARISON: Chest x-ray 04/23/2021 HISTORY: Preprocedural examination TECHNIQUE: Frontal and lateral views of the chest are obtained. FINDINGS: There is no focal air space opacity, pleural effusion, or pneumothorax seen. The cardiac silhouette size is within normal limits. The osseous structures are intact. IMPRESSION: No acute cardiopulmonary process.
== END | disposition home or self-care (01) ==
LOC: RADXRMAIN 10:39
PROVIDERS: ATTEND Nurse Practitioner Family
DX: Z01.818 Encounter for other preprocedural examination (principal)
CPT/HCPCS: 71046

== ENCOUNTER 2022-03-17 19:19 | Emergency (ER) | payer MEDICARE, OTHER ==
[2022-03-17 19:26] VITALS: RESP 18
[2022-03-17] MEDS ORDERED: HYDROcodone/APAP 10-325MG 1 EACH TAB PO ONE (20:25)
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
[2022-03-17 21:57] VITALS: BP 127/76; PULSE 84; TEMP 98.1
== END 2022-03-17 22:03 | disposition home or self-care (01) ==
LOC: SUPCPDRO 19:19 → EC 19:19
DX: S80.02XA Contusion of left knee, initial encounter (principal); S16.1XXA Strain of muscle, fascia and tendon at neck level, initial encounter; J44.9 Chronic obstructive pulmonary disease, unspecified; G47.30 Sleep apnea, unspecified; E07.9 Disorder of thyroid, unspecified; F41.9 Anxiety disorder, unspecified; F17.200 Nicotine dependence, unspecified, uncomplicated; Z79.890 Hormone replacement therapy; V49.9XXA Car occupant (driver) (passenger) injured in unspecified traffic accident, initial encounter
CPT/HCPCS: 71045; 72070; 72100; 72125; 99284

== ENCOUNTER 2022-06-30 09:29 | Observation (INO) | payer MEDICARE, OTHER ==
[2022-06-30] MEDS ORDERED: SODIUM CHLORIDE 0.9% 1,000 ML IV STA ×2 (10:08→11:57)
[2022-06-30] MEDS ORDERED: ONDANSETRON 4 MG/2 ML VIAL IVP STA (10:08)
--- NOTE | 2022-06-30 10:28 | ED ---
General Adult HPI - General Chief complaint: GI Bleed Stated complaint: Vomiting blood Time Seen by Provider: 06/30/22 10:02 Source: patient Mode of arrival: ambulatory Limitations: no limitations - History of Present Illness Initial comments: Patient is a 57 -year-old female presenting to the emergency room at the direction of her primary care provider after reports of bright red vomit this morning along with bilious vomit. She continues to feel nauseated and is belching often but has not vomited since her arrival to the emergency [facility], [place], operated by [facility]. She states that her primary care provider recently changed her gastric reflux medication to Protonix 20 mg daily which she is taking. She reports issues with chronic constipation which she is on MiraLAX for denies any episodes of diarrhea. She denies any coffee-ground emesis or abdominal pain not directly related to nausea and vomiting. She denies any chest pain, shortness of breath, dysuria, hematuria, headache, dizziness, fevers or chills. She has chronic neck and back pain which is stable along with as stated above her history of GERD. Additionally she has a past medical history significant for COPD, arthritis, sleep apnea and hypothyroidism. - Related Data Home Medications Medication Instructions Recorded Confirmed Meloxicam [Mobic] 15 mg PO DAILY PRN 01/08/17 06/30/22 Baclofen 10 mg PO DAILY PRN 10/23/17 06/30/22 HYDROcodone/APAP 10-325MG [[place] 1 tab PO QID PRN 06/22/20 06/30/22 10-325] Levothyroxine Sodium [Synthroid] 100 mcg PO DAILY 06/22/20 06/30/22 Multivitamins, Thera [Multivitamin 1 tab PO DAILY 04/23/21 06/30/22 (formulary)] Cetirizine HCl [Zyrtec] 10 mg PO DAILY PRN 06/30/22 06/30/22 Fluticasone Nasal [place] [Flonase 1 spray EA NOSTRIL DAILY PRN 06/30/22 06/30/22 Nasal [place]] Oxybutynin Chloride [Ditropan] 5 mg PO DAILY 06/30/22 06/30/22 Pantoprazole Sodium [Protonix] 20 mg PO DAILY 06/30/22 06/30/22 Rosuvastatin [Crestor] 10 mg PO HS 06/30/22 06/30/22 dilTIAZem HCL [dilTIAZem HCL 24Hr 120 mg PO DAILY 06/30/22 06/30/22 ER (CD)] Allergies Allergy/AdvReac Type Severity Reaction Status Date / Time No Known Allergies Allergy Verified 06/30/22 11:08 Review of Systems ROS Statement: Those systems with pertinent positive or pertinent negative responses have been documented in the HPI. ROS Other: All systems not noted in ROS Statement are negative. Past Medical History Past Medical History: Chest Pain / Angina, COPD, GERD/Reflux, Musculoskeletal Disorder, Osteoarthritis (OA), Sleep Apnea/CPAP/BIPAP, Thyroid Disorder Additional Past Medical History / Comment(s): emphysema,osteoporosis, gastric ulcers, elevated heart rates. History of Any Multi-Drug Resistant Organisms: None Reported Past Surgical History: Bladder Surgery, Cholecystectomy, Hernia Repair, Hyste rectomy, Orthopedic Surgery, Tonsillectomy Additional Past Surgical History / Comment(s): tumor removed left index finger, right shoulder sx. dilated esophagus, multiple egd's Past Anesthesia/Blood Transfusion Reactions: Motion Sickness, No Reported Reaction Additional Past Anesthesia/Blood Transfusion Reaction / Comment(s): SURGERY x1 HAD TO BE INTUBATED -HAD PROBLEMS BREATHING Past Psychological History: Anxiety, No Psychological Hx Reported Smoking Status: Current every day smoker, Former smoker Past Alcohol Use History: None Reported, Rare Past Drug Use History: None Reported - Past Family History Mother Family Medical History: Diabetes Mellitus, Hypertension Father Family Medical History: Hypertension General Exam - General Exam Comments Initial Comments: GENERAL: No acute distress, well developed, well nourished. HEENT: Normocephalic, atraumatic. Pupils equal, round, reactive to light. Moist mucous membranes. LUNGS: No respiratory distress. Clear to auscultation, no adventitious sounds, no use of accessory muscles. HEART: Regular rate and rhythm without murmur, rub, or gallop. ABDOMEN: Normal bowel sounds. Soft, non-distended. Tenderness bilateral upper quadrants no lower quadrant tenderness, no guarding or rebound tenderness. BACK: Normal inspection. EXTREMITIES: No edema. No tenderness. Moves all extremities. NEUROLOGIC: Alert & oriented x 3. CN II-XII grossly intact. PSYCHIATRIC: Normal affect and behavior. DERMATOLOGIC: Skin intact, without rashes or lesions noted. Limitations: no limitations Course Vital Signs 06/30/22 06/30/2206/30/23 09:45 13:48 15:32 Temperature 98.1 F 97.5 F L Pulse Rate 64 55 L 66 Respiratory 20 18 16 Rate Blood Pressure 95/57 110/60 96/62 O2 Sat by Pulse 97 99 97 Oximetry Medical Decision Making - Medical Decision Making Was pt. sent in by a medical professional or institution (, PA, ROUNDHOUSE WORKER, urgent care, hospital, or shelter...) When possible be specific @ -Per patient patient was sent in by primary care provider's direction Did you speak to anyone other than the patient for history (EMS, parent, family, police, friend...)? What history was obtained from this source @ -No Did you review nursing and triage notes (agree or disagree)? Why? @ -I reviewed and agree with nursing and triage notes Were old charts reviewed (outside hosp., previous admission, EMS record, old EKG, old radiological studies, urgent care reports/EKG's, shelter records)? Report findings @ -No old charts were reviewed Differential Diagnosis (chest pain, altered mental status, abdominal pain women, abdominal pain men, vaginal bleeding, weakness, fever, dyspnea, syncope, headache, dizziness, GI bleed, back pain, seizure, CVA, palpatations, mental health, musculoskeletal)? @ -Differential Abdominal Pain Women: Appendicitis, Cholecystitis, diverticulosis, ischemic bowel, pancreatitis, hepatitis, UTI, gastroenteritis, AAA, incarcerated hernia, bowel obstruction, constipation, inflammatory bowel, hepatitis, peptic ulcer disease, splenic infarction, perforated viscus, vulvitis, ovarian torsion, PID, kidney stone, placenta abruption, this is not meant to be an all-inclusive list EKG interpreted by me (3pts min.). @ -None done X-rays interpreted by me (1pt min.). @ -None done CT interpreted by me (1pt min.). @ -CT abdomen and pelvis with contrast: Gastric wall thickening concerning for gastritis. Moderate stool burden. No evidence of obstruction or free air. U/S interpreted by me (1pt. min.). @ -None done What testing was considered but not performed or refused? (CT, X-rays, U/S, labs)? Why? @ -None What meds were considered but not given or refused? Why? @ -None Did you discuss the management of the patient with other professionals (professionals i.e. , PA, ROUNDHOUSE WORKER, lab, RT, psych nurse, social sciences department chair, industrial security analyst, teacher, retirement officer, pillowcase turner)? Give summary @ -Yes, discussed case with Dr. Loya on for GI services who advised to admit patient to medicine keep patient nothing by mouth for EGD and morning. Continue antibiotics and IV hydration. Spoke with E Dr. Yanes regarding workup and GI recommendations. He is accepting of admission and denies any further orders this time. Was smoking cessation discussed for >3mins.? @ -No Was critical care preformed (if so, how long)? @ -No Were there social determinants of health that impacted care today? How? (Homelessness, low income, unemployed, alcoholism, drug addiction, transportation, low edu. Level, literacy, decrease access to med. care, [facility], rehab)? @ -No Was there de-escalation of care discussed even if they declined (Discuss DNR or withdrawal of care, Hospice)? DNR status @ -No What co-morbidities impacted this encounter? (DM, HTN, Smoking, COPD, CAD, C ancer, CVA, ARF, Chemo, Hep., AIDS, mental health diagnosis, sleep apnea, morbid obesity)? @ -Past medical history significant for GERD along with osteoarthritis on anti-inflammatories. Was patient admitted / discharged? Hospital course, mention meds given and r oute, prescriptions, significant lab abnormalities, going to OR and other pertinent info. @ -57-year-old female presents to the emergency room with complaints of bright red blood in her emesis earlier this morning no coffee-ground emesis, diarrhea or melanotic stools. Continued nausea without any vomiting since arrival. Will give IV hydration and Zofran. Will obtain laboratory studies of CBC, CMP, coag's, amylase, lipase, troponin and preemptively type and cross. Wi ll obtain computed tomography scan of the abdomen and pelvis with contrast and monitor closely. Symptoms improved with IV Zofran IV hydration but nausea returned without any episodes of emesis. Will give additional 1 L fluid bolus and IV Compazine. CBC with low RBCs 3.65 otherwise no abnormalities, PTT normal, CMP with elevated BUN at 30 creatinine normal no other abnormalities including liver enzymes and alkaline phosphatase normal. Lactic acid normal 0.9 troponin negative. Amylase and lipase normal. Computed tomography scan demonstrates thickening of stomach wall concerning for gastritis and recommendation for direct visualization should be clinically correlated. Moderate stool burden also noted. Nausea improved with Compazine. Above findings discussed with Dr. Loya on for GI services who advised to have patient admitted to keep patient nothing by mouth continue nausea medication along with IV hydration and she'll plan for EGD in the morning. Spoke with Dr. Yanes on for [facility] services regarding recommendation for admission with GI consult. He is accepting of admission and denies any further orders at this time. Will admit patient in stable condition for intractable nausea vomiting possible bloody emesis to observation unit under E services with GI consult. Undiagnosed new problem with uncertain prognosis? @ -No Drug Therapy requiring intensive monitoring for toxicity (Heparin, Nitro, Insulin, Cardizem)? @ -No Were any procedures done? @ -No Diagnosis/symptom? @ -Nausea and vomiting Acute, or Chronic, or Acute on Chronic? @ -Acute Uncomplicated (without systemic symptoms) or Complicated (systemic symptoms)? @ -Complicated Side effects of treatment? @ -No Exacerbation, Progression, or Severe Exacerbation? @ -No Poses a threat to life or bodily function? How? (Chest pain, [place], [place], pneumonia, PE, COPD, DKA, ARF, appy, cholecystitis, CVA, Diverticulitis, Homicidal, Suicidal, threat to staff... and all critical care pts) @ -Yes, dehydration noted an increased risk for electrolyte imbalance. Diagnosis/symptom? @ -GERD with possible bloody emesis Acute, or Chronic, or Acute on Chronic? @ -Acute on chronic Uncomplicated (without systemic symptoms) or Complicated (systemic symptoms)? @ Complicated Side effects of treatment? @ -none Exacerbation, Progression, or Severe Exacerbation] @ -no Poses a threat to life or bodily function? @ -Yes, risk for gastrointestinal bleeding and perforation. Case discussed with Dr. Terry. - Lab Data Result diagrams: 06/30/22 10:42 06/30/22 10:42 Lab Results 06/30/22 06/30/22 06/30/22 Range/Units 10:40 10:42 10:42 WBC 6.5 (3.8-10.6) k/uL RBC 3.65 L (3.80-5.40) m/uL Hgb 12.6 (11.4-16.0) gm/dL Hct 34.9 (34.0-46.0) % MCV 95.7 (80.0-100.0) fL MCH 34.6 (25.0-35.0) pg MCHC 36.1 (31.0-37.0) g/dL RDW 11.9 (11.5-15.5) % Plt Count 257 (150-450) k/uL MPV 7.4 Neutrophils % 58 % Lymphocytes % 29 % Monocytes % 5 % Eosinophils % 4 % Basophils % 1 % Neutrophils # 3.8 (1.3-7.7) k/uL Lymphocytes # 1.9 (1.0-4.8) k/uL Monocytes # 0.3 (0-1.0) k/uL Eosinophils # 0.3 (0-0.7) k/uL Basophils # 0.0 (0-0.2) k/uL APTT 24.8 (22.0-30.0) sec Sodium (137-145) mmol/L Potassium (3.5-5.1) mmol/L Chloride (98-107) mmol/L Carbon Dioxide (22-30) mmol/L Anion Gap mmol/L BUN (7-17) mg/dL Creatinine (0.52-1.04) mg/dL Est GFR (CKD-EPI)AfAm (>60 ml/min/1.73 sqM) Est GFR (CKD-EPI)NonAf (>60 ml/min/1.73 sqM) Glucose (74-99) mg/dL Plasma Lactic Acid Ad (0.7-2.0) mmol/L Calcium (8.4-10.2) mg/dL Total Bilirubin (0.2-1.3) mg/dL AST (14-36) U/L ALT (4-34) U/L Alkaline Phosphatase (38-126) U/L Troponin I (0.000-0.034) ng/mL Total Protein (6.3-8.2) g/dL Albumin (3.5-5.0) g/dL Amylase (30-110) U/L Lipase (23-300) U/L Blood Type Blood Type Confirm O Negative Blood Type Recheck Bld Type Recheck Status Antibody Screen Spec Expiration Date 06/30/22 06/30/22 06/30/22 Range/Units 10:42 10:42 10:42 WBC (3.8-10.6) k/uL RBC (3.80-5.40) m/uL Hgb (11.4-16.0) gm/dL Hct (34.0-46.0) % MCV (80.0-100.0) fL MCH (25.0-35.0) pg MCHC (31.0-37.0) g/dL RDW (11.5-15.5) % Plt Count (150-450) k/uL MPV Neutrophils % % Lymphocytes % % Monocytes % % Eosinophils % % Basophils % % Neutrophils # (1.3-7.7) k/uL Lymphocytes # (1.0-4.8) k/uL Monocytes # (0-1.0) k/uL Eosinophils # (0-0.7) k/uL Basophils # (0-0.2) k/uL APTT (22.0-30.0) sec Sodium 137 (137-145) mmol/L Potassium 4.7 (3.5-5.1) mmol/L Chloride 102 (98-107) mmol/L Carbon Dioxide 29 (22-30) mmol/L Anion Gap 6 mmol/L BUN 30 H (7-17) mg/dL Creatinine 0.75 (0.52-1.04) mg/dL Est GFR (CKD-EPI)AfAm >90 (>60 ml/min/1.73 sqM) Est GFR (CKD-EPI)NonAf 90 (>60 ml/min/1.73 sqM) Glucose 88 (74-99) mg/dL Plasma Lactic Acid Ad 0.9 (0.7-2.0) mmol/L Calcium 9.8 (8.4-10.2) mg/dL Total Bilirubin 0.3 (0.2-1.3) mg/dL AST 26 (14-36) U/L ALT 19 (4-34) U/L Alkaline Phosphatase 116 (38-126) U/L Troponin I <0.012 (0.000-0.034) ng/mL Total Protein 7.2 (6.3-8.2) g/dL Albumin 4.4 (3.5-5.0) g/dL Amylase 64 (30-110) U/L Lipase 55 (23-300) U/L Blood Type Blood Type Confirm Blood Type Recheck Bld Type Recheck Status Antibody Screen Spec Expiration Date 06/30/22 Range/Units 10:42 WBC (3.8-10.6) k/uL RBC (3.80-5.40) m/uL Hgb (11.4-16.0) gm/dL Hct (34.0-46.0) % MCV (80.0-100.0) fL MCH (25.0-35.0) pg MCHC (31.0-37.0) g/dL RDW (11.5-15.5) % Plt Count (150-450) k/uL MPV Neutrophils % % Lymphocytes % % Monocytes % % Eosinophils % % Basophils % % Neutrophils # (1.3-7.7) k/uL Lymphocytes # (1.0-4.8) k/uL Monocytes # (0-1.0) k/uL Eosinophils # (0-0.7) k/uL Basophils # (0-0.2) k/uL APTT (22.0-30.0) sec Sodium (137-145) mmol/L Potassium (3.5-5.1) mmol/L Chloride (98-107) mmol/L Carbon Dioxide (22-30) mmol/L Anion Gap mmol/L BUN (7-17) mg/dL Creatinine (0.52-1.04) mg/dL Est GFR (CKD-EPI)AfAm (>60 ml/min/1.73 sqM) Est GFR (CKD-EPI)NonAf (>60 ml/min/1.73 sqM) Glucose (74-99) mg/dL Plasma Lactic Acid Ad (0.7-2.0) mmol/L Calcium (8.4-10.2) mg/dL Total Bilirubin (0.2-1.3) mg/dL AST (14-36) U/L ALT (4-34) U/L Alkaline Phosphatase (38-126) U/L Troponin I (0.000-0.034) ng/mL Total Protein (6.3-8.2) g/dL Albumin (3.5-5.0) g/dL Amylase (30-110) U/L Lipase (23-300) U/L Blood Type O Negative Blood Type Confirm Blood Type Recheck No Previous Record Bld Type Recheck Status CABO Indicated Antibody Screen NEGATIVE Spec Expiration Date 07/03/2022 - 4244 - Radiology Data Radiology results: report reviewed, image reviewed Disposition Clinical Impression: Nausea & vomiting, Hematemesis Disposition: ADMITTED IP TO THIS [facility] Condition: Stable Time of Disposition: 14:12
[2022-06-30 11:03] LABS: Basophils % (A) 1 %; Eosinophils # (A) 0.3 k/uL (0-0.7); Eosinophils % (A) 4 %; HCT 34.9 % (34.0-46.0); HGB 12.6 gm/dL (11.4-16.0); Lymphocytes # (A) 1.9 k/uL (1.0-4.8); Lymphocytes % (A) 29 %; MCH 34.6 pg (25.0-35.0); MCHC 36.1 g/dL (31.0-37.0); MCV 95.7 fL (80.0-100.0); Mean Platelet Volume 7.4; Monocytes # (A) 0.3 k/uL (0-1.0); Monocytes % (A) 5 %; Neutrophils # (A) 3.8 k/uL (1.3-7.7); Neutrophils % (A) 58 %; Platelet Count 257 k/uL (150-450); RBC 3.65 m/uL (3.80-5.40); RDW 11.9 % (11.5-15.5); WBC 6.5 k/uL (3.8-10.6)
[2022-06-30 11:19] LABS: ALT 19 U/L (4-34); AST 26 U/L (14-36); African American GFR (CKD) >90 (>60 ml/min/1.73 sqM); Albumin 4.4 g/dL (3.5-5.0); Alkaline Phosphatase 116 U/L (38-126); Amylase 64 U/L (30-110); Anion Gap 6 mmol/L; Blood Urea Nitrogen 30 mg/dL (7-17); Calcium 9.8 mg/dL (8.4-10.2); Carbon Dioxide 29 mmol/L (22-30); Chloride 102 mmol/L (98-107); Glucose 88 mg/dL (74-99); Lipase 55 U/L (23-300); Non-African American GFR(CKD) 90 (>60 ml/min/1.73 sqM); Potassium 4.7 mmol/L (3.5-5.1); Sodium 137 mmol/L (137-145); Total Bilirubin 0.3 mg/dL (0.2-1.3); Total Protein 7.2 g/dL (6.3-8.2)
--- NOTE | 2022-06-30 12:49 | CT ---
EXAMINATION TYPE: CT abdomen pelvis w con DATE OF EXAM: 06/30/2022 COMPARISON: 11/18/2017 HISTORY: 57-year-old female pain, GI bleed TECHNIQUE: Contiguous axial scanning of the abdomen and pelvis following administration of 100 ml Iso monica 300 IV contrast. Delayed images through the kidneys and coronal/sagittal reconstructions perform ed. CT DLP: 636.7 mGycm Automated exposure control for dose reduction was used. FINDINGS: Heart normal size without pericardial effusion. Dependent atelectasis posterior right base. No pleural effusion. Surgical change at the GE junction. Thickening at the fundus of the stomach likely relates to prior s urgery, query recent fundoplication. Consider direct visualization to exclude gastritis given the thi ckening. 7 mm cyst mid liver. Liver borderline in size at 17.9 cm. Portal venous system is patent. No biliary ductal dilatation. Cholecystectomy clips. Adrenal glands, kidneys, spleen, and pancreas within normal limits. A prominent pericaval lymph node in the retroperitoneum measuring 8 mm remains unchanged. Otherwise, no mesenteric or retroperitoneal lymphadenopathy. No dilated small bowel, free fluid, or free air. Moderate stool burden. No pericolonic inflammatory change. Appendix not clearly identified. No secondary findings of acute appendicitis in the lower abdomen. Marked distention of the bladder up to 11.4 cm craniocaudally 10.4 cm wide. Numerous pelvic phlebolit hs. No abnormal fluid collection in the pelvis or pelvic lymphadenopathy. Both ovaries are visualized . Uterus surgically absent. Bones: Moderate degenerative disc disease L5-S1. IMPRESSION: 1. SURGICAL MATERIAL AT THE GE JUNCTION. QUERY PRIOR GEORGE FUNDOPLICATION. SOFT TISSUE THICKENING AT THE FUNDUS OF THE STOMACH COULD REFLECT CROWDED STOMACH WALL. IF CLINICALLY INDICATED, CONSIDER DIRE CT VISUALIZATION TO EXCLUDE THICKENING FROM A GASTRITIS. 2. MODERATE STOOL BURDEN. NO ACUTE INFLAMMATORY CHANGE OTHERWISE SEEN.
[2022-06-30] MEDS ORDERED: PROCHLORPERAZINE INJ 10 MG/2 ML VIAL IVP PRN (13:50)
[2022-06-30] MEDS ORDERED: NALOXONE 0.4 MG/ML 1 ML VIAL IV PRN (14:06)
[2022-06-30] MEDS ORDERED: PANTOPRAZOLE 40 MG/10 ML VIAL IV SCH ×2 (14:15→21:00)
[2022-06-30] MEDS ORDERED: SODIUM CHLORIDE 0.9% 1,000 ML IV SCH (14:15)
[2022-06-30 15:35] VITALS: BP 96/62; PULSE 66; RESP 16; TEMP 97.5
[2022-06-30] MEDS ORDERED: BACLOFEN 10 MG TAB PO PRN (15:41)
[2022-06-30] MEDS ORDERED: HYDROcodone/APAP 10-325MG 1 EACH TAB PO PRN (15:41)
[2022-06-30] MEDS ORDERED: FLUTICASONE 50MCG/SPRAY NASAL 16GM EA NOSTRIL PRN (15:41)
[2022-06-30] MEDS ORDERED: LORATADINE 10 MG TAB PO PRN (15:41)
[2022-06-30] MEDS ORDERED: HYDROmorphone 0.5 MG/0.5 ML SYRINGE IVP PRN (15:42)
[2022-06-30] MEDS ORDERED: DILTIAZEM CD 120 MG CAP.ER.24H PO SCH (15:45)
[2022-06-30] MEDS ORDERED: ATORVASTATIN 20 MG TAB PO SCH (21:00)
--- NOTE | 2022-07-01 01:25 | HP ---
HISTORY AND PHYSICAL CHIEF COMPLAINT: GI bleed. HISTORY OF PRESENT ILLNESS: A 57-year-old woman with a past medical history of multiple medical problems including COPD, GERD, peptic ulcer disease, was complaining of incessant vomiting and bright red vomitus. The patient came to [facility] and the patient was given Protonix. Dr. Hawthorne has been consulted and the patient is scheduled for endoscopies tomorrow. No chest pain. No palpitation. Hemoglobin is 12.6. PAST MEDICAL HISTORY: Reviewed include COPD, GERD, peptic ulcer disease. The rest of the history and rest of the chart is also reviewed. HOME MEDICATIONS: Reviewed include Crestor, dose and rest of medication noted. ALLERGIES: None. FAMILY HISTORY: History of diabetes, hypertension. SOCIAL HISTORY: History of smoking continued, ongoing. REVIEW OF SYSTEMS: A 14-point review of systems negative except as mentioned earlier. PHYSICAL EXAMINATION: VITAL SIGNS: Pulse 55, blood pressure 110/69, respirations 18. HEENT: Conjunctivae normal. NECK: No JVD. CARDIOVASCULAR: S1, S2. RESPIRATIONS: Clear to auscultation. ABDOMEN: Soft, nontender. NERVOUS SYSTEM: No focal deficits. SKIN: No ulcer, rash, bleeding. JOINTS: No active deforming arthropathy. LABORATORY DATA: Reviewed. ASSESSMENT: 1. Hematemesis and upper gastrointestinal bleeding, possible peptic ulcer disease. 2. History of peptic ulcer disease. 3. Chronic obstructive pulmonary disease. 4. Degenerative joint disease. 5. Multiple medical issues. RECOMMENDATIONS AND DISCUSSION: This is a 57-year-old woman, who presented with multiple complex medical issues. We will monitor the patient closely. We will initiate proton pump inhibitors and gastroenterology consultation. Repeat labs in the morning. Possibly EGD in the morning. Prognosis guarded. Further recommendations to follow. Symptomatic treatment also will be provided. MMODL / IJN: [id number] /
[2022-07-01] MEDS ORDERED: LEVOTHYROXINE 100 MCG TAB PO SCH (06:30)
[2022-07-01] MEDS ORDERED: OXYBUTYNIN CHLORIDE 5 MG TAB PO SCH (09:00)
== END 2022-06-30 17:15 | disposition left against medical advice (07) ==
LOC: EC 09:29 → 6NMEDSUR 13:04
PROVIDERS: ADMIT Hospitalist; ATTEND Hospitalist
DX: K92.0 Hematemesis (principal); K92.2 Gastrointestinal hemorrhage, unspecified; K21.9 Gastro-esophageal reflux disease without esophagitis; K59.09 Other constipation; J44.9 Chronic obstructive pulmonary disease, unspecified; G47.30 Sleep apnea, unspecified; E03.9 Hypothyroidism, unspecified; F41.9 Anxiety disorder, unspecified; M19.90 Unspecified osteoarthritis, unspecified site; Z87.11 Personal history of peptic ulcer disease; Z87.891 Personal history of nicotine dependence; Z79.1 Long term (current) use of non-steroidal anti-inflammatories (NSAID); Z79.890 Hormone replacement therapy; Z79.51 Long term (current) use of inhaled steroids; Z79.899 Other long term (current) drug therapy; Z53.29 Procedure and treatment not carried out because of patient's decision for other reasons
CPT/HCPCS: 96361; 96374; 96375; 99285; 36415; 86900; 86901; 80053; 82150; 83605; 83690; 84484; 85025; 85730; 86850; 74177; G0378; J0780; J2405; C9113; Q9967

== ENCOUNTER 2022-08-29 08:08 | Day surgery (SDC) | payer MEDICARE, OTHER ==
[2022-08-27 10:37] VITALS: BMI 22.3
[2022-08-29 08:37] VITALS: TEMP 98.2
[2022-08-29] MEDS: LACTATED RINGERS 1,000 ML IV SCH ×2 (08:47→08:52)
[2022-08-29] MEDS ORDERED: PROPOFOL 10 MG/ML 20 ML VIAL IV ONE (08:58)
--- NOTE | 2022-08-29 09:23 | P.PCN ---
Date of Procedure: 08/29/22 Procedure(s) Performed: Brief history: Patient is a pleasant 57-year-old white female scheduled for an elective upper endoscopy as well as colonoscopy as a part of evaluation of epigastric pain/coffee-ground emesis and change in bowel habits on and off for the last several months duration Procedure performed: Esophagogastroduodenoscopy with biopsy Colonoscopy Preoperative diagnosis: Epigastric pain/coffee-ground emesis Change in bowel habits Anesthesia: [facility] [place] [facility] [place] Procedure: After informed consent was obtained from the patient was brought into the endoscopy unit and IV sedation was administered by anesthesia under continuous monitoring. Initially upper endoscopy was done. The Olympus GF 160 video e ndoscope was inserted inserted into the mouth and esophagus intubated without any difficulty and was gradually advanced into the stomach and duodenum and carefully examined. The bulb and second part of the duodenum appeared normal. The scope was then withdrawn into the stomach adequately insufflated with air and upon careful examination the antrum and body, mild diffuse gastritis and biopsies were done from this area. Mucosa of the cardia and fundus appeared normal. The scope was then withdrawn into the esophagus. Small hiatal hernia noted. The GE junction was located at 40 cm to the incisors. It appeared regular with no erythema erosions or ulcerations. Rest of the esophagus appeared normal. Patient tolerated the procedure well. At this time the patient continued to remain sedation. Initial digital rectal examination was normal. Olympus CF 160 video colonoscope was then inserted into the rectum and gradually advanced to the cecum without any difficulty. Careful examination was performed as the scope was gradually being withdrawn. The prep was excellent. The cecum, ascending colon, transverse colon, descending colon, sigmoid colon and rectum appeared normal. Retroflexion was performed in the rectum and no lesions were noted. Patient tolerated the procedure well. Impression: 1. Upper endoscopy revealed diffuse antral gastritis and a small hiatal hernia 2. Colonoscopy was within normal limits with no evidence of colorectal neoplasia Recommendations: Findings of this examination were discussed with the patient as well as a family. She was advised to follow with the biopsy results. Continue with current medications and Protonix 40 mg daily and follow antireflux measures. Recommend repeat screening colonoscopy in 10 years.
[2022-08-29 10:15] VITALS: BP 122/74; PULSE 68; RESP 18
== END 2022-08-29 10:10 | disposition home or self-care (01) ==
LOC: ORWHC2ENDO 08:08
PROVIDERS: ATTEND Internal Medicine Gastroenterology
DX: K29.50 Unspecified chronic gastritis without bleeding (principal); R19.4 Change in bowel habit; K44.9 Diaphragmatic hernia without obstruction or gangrene; I25.10 Atherosclerotic heart disease of native coronary artery without angina pectoris; I10 Essential (primary) hypertension; E78.5 Hyperlipidemia, unspecified; G47.33 Obstructive sleep apnea (adult) (pediatric); K21.9 Gastro-esophageal reflux disease without esophagitis; E07.9 Disorder of thyroid, unspecified; Z87.891 Personal history of nicotine dependence; Z79.51 Long term (current) use of inhaled steroids; Z79.890 Hormone replacement therapy; Z79.899 Other long term (current) drug therapy
CPT/HCPCS: 88305; 45378; 43239; J2704

== ENCOUNTER → 2022-11-14 | Outpatient (CLI) | payer MEDICARE, OTHER ==
--- NOTE | 2022-11-14 15:26 | CT ---
EXAMINATION TYPE: CT lumbar spine wo con DATE OF EXAM: 11/14/2022 COMPARISON: None HISTORY: Spondylosis. CT DLP: 1179 mGycm CONTRAST: None TECHNIQUE: CT of the lumbar spine is performed on a spiral scan at 3 mm thick sections. Reconstructed images are performed in the coronal and sagittal planes. FINDINGS: T12-L1: No focal disc herniation or significant disc bulge is evident. No spinal canal stenosis or neural foraminal stenosis is present. L1-L2: No focal disc herniation or significant disc bulge is evident. No spinal canal stenosis or n eural foraminal stenosis is present L2-L3: No focal disc herniation or significant disc bulge is evident. No spinal canal stenosis or n eural foraminal stenosis is present L3-L4: Mild disc bulge is present with anterior thecal sac contact. No AP spinal canal stenosis prese nt. Neural foramen are patent. L4-L5: Broad-based disc bulge has mild anterior thecal sac impression. No AP spinal canal stenosis pr esent. Facet hypertrophy is present. Disc material may extend into the inferior left and into the for amen on the right with moderate right and mild left foraminal stenosis. Correlate with the radicular symptoms. L5-S1: Normal disc bulge is present with anterior thecal sac contact. No spinal canal stenosis or desmond ral foraminal stenosis is present. Moderate left foraminal stenosis. Vertebral alignment appears normal. IMPRESSION: 1. Disc bulging L3-4 through L5-S1. This has mild anterior thecal sac compression at L3-4 and L4-5 wi thout stenosis. 2. Foraminal stenosis greatest on the right L4-5. Correlate with radicular symptoms. 3. More moderate foraminal narrowing present L5-S1 bilaterally and left L4-5.
== END | disposition home or self-care (01) ==
LOC: RADCTMAIN 07:25
PROVIDERS: ATTEND Orthopaedic Surgery Orthopaedic Surgery of the Spine
DX: M47.816 Spondylosis without myelopathy or radiculopathy, lumbar region (principal); M51.37 Other intervertebral disc degeneration, lumbosacral region; M99.73 Connective tissue and disc stenosis of intervertebral foramina of lumbar region
CPT/HCPCS: 72131

== ENCOUNTER → 2024-05-10 | Outpatient (CLI) | payer MEDICARE, OTHER ==
--- NOTE | 2024-05-10 15:00 | US ---
EXAMINATION TYPE: US arterial LE single level DATE OF EXAM: 05/10/2024 2:11 PM COMPARISONS: CT abdomen and pelvis June 30, 2022. CLINICAL INDICATION: Female, 58 years old with history of I73.9 PAD; Numbness and pain in legs TECHNIQUE: Systolic pressures were taken of the upper and lower extremity arteries with ankle-brachia l indices and toe brachial indices calculated bilaterally. History of: Smoker: yes Hypertension: no Diabetic: no Hyperlipidemia: yes TIA/CVA: no Previous Vascular Surgery: no CAD: no [place]: no Vascular Ulcers: no Claudication: yes Gangrene: no FINDINGS: Doppler Waveforms: Right: Multiphasic Left: Multiphasic Brachial Artery systolic pressure: Right: 142 Left: 136 Posterior Tibial artery systolic pressure: Right: 159 Left: 124 Dorsalis Pedis artery systolic pressure: Right: 165 Left: 171 Ankle-Brachial Indices: Right: 1.16 Left: 1.24 IMPRESSION: MONIE: Right: Normal 0.9 - 1.4, Recommendation: None Left: Normal 0.9 - 1.4, Recommendation: None [facility], , 05/10/2024 2:58 PM
--- NOTE | 2024-05-10 15:01 | US ---
EXAMINATION TYPE: US arterial UE single level DATE OF EXAM: 05/10/2024 2:00 PM CLINICAL INDICATION: Female, 58 years old with history of I73.9 PAD; Pt states she has pain and numbn ess in legs and upper arm TECHNIQUE: Systolic pressures were taken of the upper extremity arteries with wrist brachial indices calculated. History of: Smoker: yes Hypertension: no Diabetic: no Hyperlipidemia: yes TIA/CVA: no Previous Vascular Surgery: no CAD: no [place]: no Vascular Ulcers: no Claudication: yes Gangrene: no FINDINGS: Doppler Waveforms: Right: Brachial: Multiphasic Radial: Multiphasic Ulnar: Multiphasic Left: Brachial: Multiphasic Radial: Multiphasic Ulnar: Multiphasic Right: Brachial: 142 Radial artery: 143 Ulnar Artery: 143 Left: Brachial: 136 Radial artery: 148 Ulnar Artery: 146 Wrist Brachial Indices: Right: 1.01 Left: 1.04 IMPRESSION: Normal study [facility], , 05/10/2024 2:59 PM
== END | disposition home or self-care (01) ==
LOC: RADUSWWP 13:34
PROVIDERS: ATTEND Internal Medicine Geriatric Medicine
DX: I73.9 Peripheral vascular disease, unspecified (principal)
CPT/HCPCS: 93922